=== PATIENT | female | born 2000 | race Caucasian/White ===

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

== ENCOUNTER 2020-04-19 14:08 | Emergency (ER) | payer OTHER ==
--- OUTSIDE RECORDS SUMMARY | 2020-04-19 14:10 | XMS REPORT ---
:2000 Author Organization [facility] Address [address] [place] [address] Dr. Merino [address] [place] [id number] Care Team Providers Name Role Phone Unavailable Unavailable Unavailable Problems This patient has no known problems. Allergies, Adverse Reactions, Alerts This patient has no known allergies or adverse reactions. Medications This patient has no known medications. Procedures This patient has no known procedures. Results This patient has no known results.
[2020-04-19] MEDS ORDERED: FAMOTIDINE 20 MG/2 ML VIAL IV ONE (15:47)
[2020-04-19] MEDS ORDERED: MORPHINE 4 MG/ML SYR ONE (15:47)
--- NOTE | 2020-04-19 16:11 | RAD REPORT ---
EXAM DESCRIPTION: RAD - Chest Pa And Lat (2 Views) - 04/19/2020 4:07 pm CLINICAL HISTORY: sob Chest pain. COMPARISON: Abdomen Acute Series dated 11/21/2018; CHEST PA AND LAT 2 VIEW dated 08/22/2015; CHEST SI NGLE VIEW dated 10/02/2014; CHEST SINGLE VIEW dated 07/06/2014 FINDINGS: The lungs are clear. The heart is normal in size. No displaced fractures. IMPRESSION: No acute or concerning finding suspected.
[2020-04-19 16:59] LABS: Absolute Lymphocytes (CBC) 1.1 K/uL (0.7-4.9); Basophils % 0.6 % (0-1.3); Hematocrit 40.1 % (36.0-45.0); Lymphocytes % 16.2 % (15.3-44.8); MPV 8.4 fL (7.6-11.3)
[2020-04-19 17:04] LABS: Barbiturates NEGATIVE (NEGATIVE); Benzodiazepines NEGATIVE (NEGATIVE); Cocaine NEGATIVE (NEGATIVE); METHAMPHETAM NEGATIVE (NEGATIVE); Methadone NEGATIVE (NEGATIVE); Opiates NEGATIVE (NEGATIVE); Phencyclidine NEGATIVE (NEGATIVE); THC Cannibis NEGATIVE (NEGATIVE)
[2020-04-19 17:13] LABS: Bilirubin Direct 0.1 mg/dL (0-0.2); Bilirubin Total 0.5 mg/dL (0.2-1.0); Potassium 3.6 mmol/L (3.5-5.1); Protein, Total 8.1 g/dL (6.4-8.2)
[2020-04-19 18:18] LABS: Urine Blood 1+ (NEG); Urine Glucose NEGATIVE (NEG); Urine Protein NEGATIVE (NEG); Urine Specific Gravity 1.015 (1.005-1.030)
--- NOTE | 2020-04-19 18:50 | RAD REPORT ---
EXAM DESCRIPTION: CTAbdomen Pelvis W Contrast - 04/19/2020 6:38 pm CLINICAL HISTORY: Abdominal pain. ABD PAIN COMPARISON: Abdomen Pelvis W Contrast dated 11/26/2017 TECHNIQUE: Biphasic CT imaging of the abdomen and pelvis was performed with 100 ml non-ionic IV cont rast. All CT scans are performed using dose optimization technique as appropriate and may include automated exposure control or mA/KV adjustment according to patient size. FINDINGS: The lung bases are clear. The liver, spleen, pancreas, adrenal glands and kidneys are within normal limits. No bowel obstruction, free air, free fluid or abscess. The appendix is normal. No evidence of signi ficant lymphadenopathy. No suspicious bony findings. IMPRESSION: No acute intra-abdominal or pelvic finding.
--- NOTE | 2020-04-19 19:16 | EDPHYS ---
Physician Documentation [facility] Name: Gayathri Garcia Age: 19 yrs Sex: Female : 2000 Arrival Date: 04/19/2020 Time: 14:12 Bed 20 Private MD: ED Physician Eric Calvin HPI: 04/19 15:41 This 19 yrs old Female presents to ER via Ambulatory with complaints of mh7 abdominal pain, difficulty breathing. 15:45 The patient presents with abdominal pain in the upper abdomen. Onset: The mh7 symptoms/episode began/occurred today, at 12:00. The symptoms do not radiate. Associated signs and symptoms: Pertinent positives: shortness of breath, Pertinent negatives: nausea and vomiting, blood in stools, chest pain, constipation, diarrhea, dysuria, fever, headache, hematuria, nausea, palpitations, vaginal discharge, vomiting, vomiting blood. The symptoms are described as intermittent, sharp, waxing/waning. Modifying factors: The symptoms are alleviated by nothing, the symptoms are aggravated by breathing deeply, movement, touching the area. Severity of pain: At its worst the pain was moderate today, in the emergency department the pain is unchanged. Historical: - Allergies: 14:20 No Known Allergies; ll1 - PMHx: 14:20 Anxiety; Depression; hypertension during ; ll1 - PSHx: 14:20 None; ll1 - Immunization history:: Adult Immunizations up to date. - Social history:: Smoking status: Reported history of juuling and/or vaping. Patient uses alcohol, only on a social basis. Patient/guardian denies using street drugs. ROS: 15:45 Constitutional: Negative for fever, chills, and weight loss, Eyes: Negative for injury, mh7 pain, redness, and discharge, ENT: Negative for injury, pain, and discharge, Neck: Negative for injury, pain, and swelling, Cardiovascular: Negative for chest pain, palpitations, and edema, Back: Negative for injury and pain, : Negative for injury, bleeding, discharge, and swelling, MS/Extremity: Negative for injury and deformity, Skin: Negative for injury, rash, and discoloration, Neuro: Negative for headache, weakness, numbness, tingling, and seizure, Psych: Negative for depression, anxiety, suicide ideation, homicidal ideation, and hallucinations, Allergy/Immunology: Negative for hives, rash, and allergies, Endocrine: Negative for neck swelling, polydipsia, polyuria, polyphagia, and marked weight changes, Hematologic/Lymphatic: Negative for swollen nodes, abnormal bleeding, and unusual bruising. Exam: 15:45 Constitutional: This is a well developed, well nourished patient who is awake, alert, mh7 and in no acute distress. Head/Face: Normocephalic, atraumatic. Eyes: Pupils equal round and reactive to light, extra-ocular motions intact. Lids and lashes normal. Conjunctiva and sclera are non-icteric and not injected. Cornea within normal limits. Periorbital areas with no swelling, redness, or edema. Neck: Trachea midline, no thyromegaly or masses palpated, and no cervical lymphadenopathy. Supple, full range of motion without nuchal rigidity, or vertebral point tenderness. No Meningismus. Chest/axilla: Normal chest wall appearance and motion. Nontender with no deformity. No lesions are appreciated. Cardiovascular: Regular rate and rhythm with a normal S1 and S2. No gallops, murmurs, or rubs. Normal PMI, no JVD. No pulse deficits. 15:45 Back: No spinal tenderness. No costovertebral tenderness. Full range of motion. Skin: Warm, dry with normal turgor. Normal color with no rashes, no lesions, and no evidence of cellulitis. MS/ Extremity: Pulses equal, no cyanosis. Neurovascular intact. Full, normal range of motion. Neuro: Awake and alert, GCS 15, oriented to person, place, time, and situation. Cranial nerves II-XII grossly intact. Motor strength 5/5 in all extremities. Sensory grossly intact. Cerebellar exam normal. Normal gait. Psych: Awake, alert, with orientation to person, place and time. Behavior, mood, and affect are within normal limits. 15:45 Respiratory: the patient does not display signs of respiratory distress, Respirations: normal, Breath sounds: are clear throughout, Respiratory rate: normal 15:45 Abdomen/GI: Inspection: abdomen appears normal, Bowel sounds: normal, in all quadrants, Palpation: moderate abdominal tenderness, in all quadrants, Rectal exam: the exam is deferred, because of patient request, Indicators: McBurney's point is not tender, Rondon's sign is negative, Rovsing's sign is negative, Obturator sign is negative, Psoas sign is negative, Liver: no appreciated palpable abnormalities, Hernia: not appreciated. 16:27 ECG was reviewed by the Attending Physician. mh7 Vital Signs: 14:18 BP 126 / 84; Pulse 85; Resp 19; Temp 98.33; Pulse Ox 99% ; Pain 8/10; ll1 16:50 BP 118 / 75; Pulse 72; Resp 18; Pulse Ox 98% ; ah 17:30 BP 127 / 80 Standing; Pulse 64; Resp 16; Pulse Ox 98% ; ah 18:00 BP 123 / 82; Pulse 56; Resp 16; Pulse Ox 99% ; ah 20:11 BP 115 / 78; Pulse 65; Resp 18; Temp 98.2(O); Pulse Ox 100% on R/A; lp1 MDM: 15:24 Patient medically screened. mh7 19:10 Differential diagnosis: appendicitis, cholecystitis, Cholelithiasis, Ectopic , mh7 gastritis, gastroesophageal reflux disease, non-specific abd pain, pancreatitis, Pyelonephritis, urinary tract infection. Data reviewed: vital signs, nurses notes, old medical records, lab test result(s), amylase and lipase, CBC, electrolytes, urinalysis. Data interpreted: Pulse oximetry: on room air is 99 %. Interpretation: normal. Counseling: I had a detailed discussion with the patient and/or guardian regarding: the historical points, exam findings, and any diagnostic results supporting the discharge/admit diagnosis, lab results, radiology results, the need for outpatient follow up, to return to the emergency department if symptoms worsen or persist or if there are any questions or concerns that arise at home. Response to treatment: the patient's symptoms have resolved after treatment, the patient's blood pressure is in an acceptable range, mental status has returned to baseline, the patient no longer shows bradycardia, the patient is not short of breath, the patient is not tachycardic, the patient's pain is gone, the patient's temperature has normalized. 04/20 07:41 ED course: Feels better, well appearing, NAD, VSS. No abdominal pain, SOB, chest pain, mh7 nausea, vomiting, or other complaints. She was actively playing a game on her cell phone. Discussed all test results and findings and answered all of her questions. She requested to be discharged from the ED. She will follow up with her doctor but agreed to return to the ED if return of symptoms or other concerns.. 04/19 15:29 Order name: Basic Metabolic Panel [facility] 04/19 15:29 Order name: CBC with Diff [facility] 04/19 15:29 Order name: Hepatic Function [facility] 04/19 15:29 Order name: Lipase [facility] 04/19 15:29 Order name: Test, Serum [facility] 04/19 15:29 Order name: UDS [facility] 04/19 15:29 Order name: DD [facility] 04/19 15:56 Order name: Troponin (emerg Dept Use Only) [facility] 04/19 16:49 Order name: Urine Dipstick--Ancillary (enter results); Complete Time: 18:26 [facility] 04/19 16:49 Order name: Urine --Ancillary (enter results); Complete Time: 18:26 [facility] 04/19 17:04 Order name: Urine Drug Screen; Complete Time: 17:10 [facility] 04/19 17:14 Order name: Basic Metabolic Panel; Complete Time: 17:19 [facility] 04/19 17:14 Order name: Liver (Hepatic) Function; Complete Time: 17:19 [facility] 04/19 17:14 Order name: Lipase; Complete Time: 17:19 [facility] 04/19 15:29 Order name: IV Saline Lock; Complete Time: 16:48 [facility] 04/19 15:29 Order name: Labs collected and sent; Complete Time: 16:48 [facility] 04/19 15:29 Order name: Urine Dipstick-Ancillary (obtain specimen); Complete Time: 16:45 [facility] 04/19 15:29 Order name: EKG - Nurse/Tech; Complete Time: 16:48 [facility] 04/19 15:29 Order name: Chest Pa And Lat (2 Views) XRAY [facility] 04/19 17:04 Order name: Chest Pa And Lat (2 Views); Complete Time: 18:26 [facility] 04/19 17:16 Order name: D-Dimer; Complete Time: 17:19 [facility] 04/19 17:19 Order name: CBC with Automated Diff; Complete Time: 18:26 [facility] 04/19 17:21 Order name: CT Abd/Pelvis - IV Contrast Only; Complete Time: 18:59 [facility] EC/23 16:27 Rate is 71 beats/min. Rhythm is regular. QRS [place] is Normal. PA interval is normal. QRS mh7 interval is normal. QT interval is normal. No Q waves. T waves are Inverted in leads I, III, aVL. Clinical impression: NSR w/ Non-specific ST/T Changes. Administered Medications: 16:45 Drug: morphine 4 mg Route: IVP; Site: left antecubital; 17:45 Follow up: Response: No adverse reaction; Pain is decreased; RASS: Alert and Calm (0) 16:45 Drug: Pepcid 20 mg Route: IVP; Site: left antecubital; 17:45 Follow up: Response: No adverse reaction Disposition: 04/19/20 19:13 Discharged to Home. Impression: Generalized abdominal pain, Urinary tract infection, site not specified. - Condition is Stable. - Discharge Instructions: Abdominal Pain, Adult, Urinary Tract Infection, Adult, [id number]. - Prescriptions for Bentyl 20 mg Oral Tablet - take 1 tablet by ORAL route every 6 hours As needed; 20 tablet. Keflex 500 mg Oral Capsule - take 1 capsule by ORAL route every 12 hours for 7 days; 14 capsule. Pepcid 20 mg Oral Tablet - take 1 tablet by ORAL route once daily for 10 days; 10 tablet. - Work release form, Medication Reconciliation Form, Thank You Letter, Antibiotic Education, Prescription Opioid Use form. - Follow up: Private Physician; When: 2 - 3 days; Reason: Worsening of condition, Re-evaluation by your physician. - Problem is an acute exacerbation. - Symptoms have improved. Signatures: Dispatcher [employer] EDMS Cristina Queen RN RN lp1 Bryanna Francis RN RN Kerry Langley RN RN ll1 Eric Calvin MD MD mh7 Corrections: (The following items were deleted from the chart) 20:12 19:13 04/19/2020 19:13 Discharged to Home. Impression: Generalized abdominal pain; lp1 Urinary tract infection, site not specified. Condition is Stable. Forms are Medication Reconciliation Form, Thank You Letter, Antibiotic Education, Prescription Opioid Use. Follow up: Private Physician; When: 2 - 3 days; Reason: Worsening of condition, Re-evaluation by your physician. Problem is an acute exacerbation. Symptoms have improved. mh7
--- NOTE | 2020-04-19 19:16 | ER ---
Nurse's Notes [facility] Name: Gayathri Garcia Age: 19 yrs Sex: Female : 2000 Arrival Date: 04/19/2020 Time: 14:12 Bed 20 Private MD: Diagnosis: Generalized abdominal pain;Urinary tract infection, site not specified Presentation: 04/19 14:18 Chief complaint: Patient states: SOB and mid chest pain started today while at work. No ll1 fever or cough. Coronavirus screen: Proceed with normal triage. Patient denies a cough. Patient reports shortness of breath or difficulty breathing. Patient denies measured and/or subjective temperature greater than 100.4F prior to today's visit. Patient denies travel on a cruise ship or to a country the [facility] currently lists as an affected area. Patient denies contact with known and/or suspected case of COVID-19. Ebola Screen: Patient denies travel to an Ebola-affected area in the 21 days before illness onset. Initial Sepsis Screen: Does the patient meet any 2 criteria? No. Patient's initial sepsis screen is negative. Does the patient have a suspected source of infection? No. Patient's initial sepsis screen is negative. Risk Assessment: Do you want to hurt yourself or someone else? Patient reports no desire to harm self or others. Onset of symptoms was April 19, 2020. 14:18 Method Of Arrival: Ambulatory ll1 14:18 Acuity: RYANN 3 ll1 Triage Assessment: 22:48 Respiratory: ah Historical: - Allergies: 14:20 No Known Allergies; ll1 - PMHx: 14:20 Anxiety; Depression; hypertension during ; ll1 - PSHx: 14:20 None; ll1 - Immunization history:: Adult Immunizations up to date. - Social history:: Smoking status: Reported history of juuling and/or vaping. Patient uses alcohol, only on a social basis. Patient/guardian denies using street drugs. Screenin:45 Abuse screen: Denies threats or abuse. Nutritional screening: No deficits noted. Tuberculosis screening: No symptoms or risk factors identified. Fall Risk None identified. Assessment: 15:30 General: Appears in no apparent distress. uncomfortable, Behavior is calm, cooperative. Pain: Denies pain. Neuro: Level of Consciousness is awake, alert, Oriented to person, place, time, situation, Appropriate for age. Cardiovascular: Heart tones S1 S2 present Capillary refill < 3 seconds Patient's skin is warm and dry. Pulses are palpable in right radial artery and left radial artery Rhythm is regular. Respiratory: Airway is patent Respiratory effort is even, unlabored, Respiratory pattern is regular, symmetrical, Breath sounds are clear bilaterally. GI: Bowel sounds present X 4 quads. : No signs and/or symptoms were reported regarding the genitourinary system. EENT: No signs and/or symptoms were reported regarding the EENT system. Derm: No signs and/or symptoms reported regarding the dermatologic system. Musculoskeletal: No signs and/or symptoms reported regarding the musculoskeletal system. 16:30 Reassessment: Patient and/or family updated on plan of care and expected duration. Pain ah level reassessed. Pt lying in bed with no needs voiced at this time. 17:30 Reassessment: awaiting on results. No needs voiced at this time. Vital Signs: 14:18 BP 126 / 84; Pulse 85; Resp 19; Temp 98.33; Pulse Ox 99% ; Pain 8/10; ll1 16:50 BP 118 / 75; Pulse 72; Resp 18; Pulse Ox 98% ; ah 17:30 BP 127 / 80 Standing; Pulse 64; Resp 16; Pulse Ox 98% ; ah 18:00 BP 123 / 82; Pulse 56; Resp 16; Pulse Ox 99% ; ah 20:11 BP 115 / 78; Pulse 65; Resp 18; Temp 98.2(O); Pulse Ox 100% on R/A; lp1 ED Course: 14:12 Patient arrived in ED. fj1 14:19 Triage completed. ll1 14:20 Arm band placed on Patient notified of wait time. ll1 15:06 Eric Calvin MD is Attending Physician. mh7 15:33 Bryanna Francis, RN is Primary Nurse. 16:00 EKG done, by ED staff, reviewed by Eric Calvin MD X-ray(s) taken. Patient maintains jp3 SpO2 saturation greater than 95% on room air. 16:40 Initial lab(s) drawn, by la, sent to lab. Urine collected: clean catch specimen, clear, jp3 joyce colored. Inserted saline lock: 20 gauge in left antecubital area, using aseptic technique. Blood collected. 18:38 CT Abd/Pelvis - IV Contrast Only In Process Unspecified. EDMS 19:00 Patient has correct armband on for positive identification. Bed in low position. Call light in reach. Side rails up X 1. 20:12 No provider procedures requiring assistance completed. IV discontinued. lp1 Administered Medications: 16:45 Drug: morphine 4 mg Route: IVP; Site: left antecubital; 17:45 Follow up: Response: No adverse reaction; Pain is decreased; RASS: Alert and Calm (0) 16:45 Drug: Pepcid 20 mg Route: IVP; Site: left antecubital; 17:45 Follow up: Response: No adverse reaction Outcome: 19:13 Discharge ordered by . Perry 20:12 Discharged to home ambulatory. lp1 20:12 Condition: good 20:12 Discharge instructions given to patient, Instructed on discharge instructions, follow up and referral plans. medication usage, Demonstrated understanding of instructions, follow-up care, medications, Prescriptions given X 3. 20:12 Patient left the ED. lp1 Signatures: Dispatcher [employer] EDMS Cristina Queen, RN RN lp1 Jas Rob jp3 Evan Patten fj1 Bryanna Francis, RN RN Kerry Farris RN RN ll1 Eric Calvin MD MD [facility]
[2020-04-19 20:45] VITALS: BP 115/78; TEMP 98.2; O2SAT 100
--- NOTE | 2020-04-21 08:57 | EKG ---
Test Date: 2020-04-19 Test Time: 15:54:23 Loop Tacker: SILVERIO MEASUREMENT RESULTS: Intervals: Rate: 71 OK: 168 QRSD: 90 QT: 370 QTc: 402 [place]: P: OK: 168 QRS: 117 T: 182 INTERPRETIVE STATEMENTS: Normal sinus rhythm with sinus arrhythmia Lateral infarct, age undetermined Inferior infarct, age undetermined Abnormal ECG Compared to ECG 12/10/2019 06:07:28 Myocardial infarct finding now present Electronically Signed On 04-21-20 08:54:20 CDT by Aden Us
== END 2020-04-19 20:12 | disposition home or self-care (01) ==
LOC: ER 14:08
DX: N39.0 Urinary tract infection, site not specified (principal)
CPT/HCPCS: 93005; 85025; 80048; 36415; 81025; 85379; 80076; 80307 ×8; 81003; 83690; 74177; 71046; 96375; 96374; 99284; Q9967

== ENCOUNTER 2020-07-09 20:48 | Emergency (ER) | payer OTHER ==
--- OUTSIDE RECORDS SUMMARY | 2020-07-09 20:50 | XMS REPORT | Continuity of Care Document ---
:2000 Author Organization [facility] t Address [address] [place] [address] [address] [place] [address] Care Team Providers Name Role Phone Unavailable Unavailable Unavailable Problems This patient has no known problems. Allergies, Adverse Reactions, Alerts This patient has no known allergies or adverse reactions. Medications This patient has no known medications. Procedures This patient has no known procedures. Results This patient has no known results.
[2020-07-09] MEDS ORDERED: KETOROLAC 30 MG/ML INJ ONE (22:40)
--- NOTE | 2020-07-09 23:05 | EDPHYS ---
Physician Documentation [facility] Name: Gayathri Garcia Age: 19 yrs Sex: Female : 2000 Arrival Date: 07/09/2020 Time: 20:53 Bed 30 Private MD: ED Physician Eric Peres HPI: 07/10 05:15 This 19 yrs old Female presents to ER via Ambulatory with complaints of Knee tw4 Pain, Fall Injury. 05:15 Details of fall: The patient fell from seated position, from boat. Onset: The tw4 symptoms/episode began/occurred yesterday. Associated injuries: The patient sustained right knee. Severity of symptoms: At their worst the symptoms were moderate, in the emergency department the symptoms are unchanged. The patient has not experienced similar symptoms in the past. HEALTHCARE RECRUITER: 07/09 21:56 LMP 07/09/2020 bb Historical: - Home Meds: 21:56 None [Active]; bb - PMHx: 21:56 Anxiety; Depression; hypertension during ; bb - PSHx: 21:56 None; bb - Immunization history:: Adult Immunizations up to date. - Social history:: Smoking status: Patient denies any tobacco usage or history of. ROS: 07/10 05:15 Constitutional: Negative for fever, chills, and weight loss, Eyes: Negative for injury, tw4 pain, redness, and discharge, Cardiovascular: Negative for chest pain, palpitations, and edema, Respiratory: Negative for shortness of breath, cough, wheezing, and pleuritic chest pain, Abdomen/GI: Negative for abdominal pain, nausea, vomiting, diarrhea, and constipation, Back: Negative for injury and pain, Skin: Negative for injury, rash, and discoloration, Neuro: Negative for headache, weakness, numbness, tingling, and seizure. MS/extremity: Positive for injury or acute deformity, pain, swelling, tenderness, Negative for abrasion, bite, decreased range of motion. Exam: 05:15 Constitutional: This is a well developed, well nourished patient who is awake, alert, tw4 and in no acute distress. Chest/axilla: Normal chest wall appearance and motion. Nontender with no deformity. No lesions are appreciated. Cardiovascular: Regular rate and rhythm with a normal S1 and S2. No gallops, murmurs, or rubs. Normal PMI, no JVD. No pulse deficits. Respiratory: Lungs have equal breath sounds bilaterally, clear to auscultation and percussion. No rales, rhonchi or wheezes noted. No increased work of breathing, no retractions or nasal flaring. 05:15 Musculoskeletal/extremity: Extremities: noted in the right leg: decreased ROM, pain, swelling, tenderness. Vital Signs: 07/09 21:53 BP 113 / 73; Pulse 85; Resp 14 S; Temp 98.2(O); Pulse Ox 99% on R/A; Weight 81.65 kg bb (R); Height 5 ft. 10 in. (177.80 cm) (R); Pain 9/10; 23:36 BP 103 / 52; Pulse 68; Resp 14 S; Pulse Ox 98% on R/A; Pain 4/10; bb 21:53 Body Mass Index 25.83 (81.65 kg, 177.80 cm) bb MDM: 21:39 Patient medically screened. tw4 07/10 05:15 Differential diagnosis: abrasion, closed head injury, fracture, multiple trauma. Data tw4 reviewed: vital signs, nurses notes. Data reviewed: radiologic studies, plain films. Data interpreted: Pulse oximetry: Interpretation: normal. Counseling: I had a detailed discussion with the patient and/or guardian regarding: the historical points, exam findings, and any diagnostic results supporting the discharge/admit diagnosis, radiology results. Medication response: Toradol partially relieved the patient's pain. Response to treatment: the patient's symptoms have mildly improved after treatment, and as a result, I will discharge patient. Special discussion: I discussed with the patient/guardian in detail that at this point there is no indication for admission to the hospital. It is understood, however, that if the symptoms persist or worsen the patient needs to return immediately for re-evaluation. 07/09 21:59 Order name: XRAY Knee RIGHT 3 view bb 07/09 23:04 Order name: Knee Immobilizer; Complete Time: 23:36 tw4 Administered Medications: 07/09 22:34 Drug: TORadol 60 mg Route: IM; Site: right gluteus; bb 23:36 Follow up: Response: Pain is decreased bb Disposition: 07/09/20 23:04 Discharged to Home. Impression: Sprain of other specified parts of knee. - Condition is Stable. - Discharge Instructions: Knee Immobilizer, Knee Sprain, [id number]. - Medication Reconciliation Form, Thank You Letter, Antibiotic Education, Prescription Opioid Use form. - Follow up: Private Physician; When: Upon discharge from the Emergency Department; Reason: Recheck today's complaints, Continuance of care, Re-evaluation by your physician. - Problem is new. - Symptoms have improved. Signatures: Dispatcher [employer] Lydia Lawler RN RN Eric Hubbard MD MD tw4 Corrections: (The following items were deleted from the chart) 23:37 23:04 07/09/2020 23:04 Discharged to Home. Impression: Sprain of other specified parts bb of knee. Condition is Stable. Forms are Medication Reconciliation Form, Thank You Letter, Antibiotic Education, Prescription Opioid Use. Follow up: Private Physician; When: Upon discharge from the Emergency Department; Reason: Recheck today's complaints, Continuance of care, Re-evaluation by your physician. Problem is new. Symptoms have improved. tw4
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
[2020-07-09 23:42] VITALS: TEMP 98.2
[2020-07-09 23:43] VITALS: BP 103/52; O2SAT 98
--- NOTE | 2020-07-10 07:34 | RAD REPORT ---
EXAM DESCRIPTION: RAD - Knee Right 3 View - 07/09/2020 10:41 pm CLINICAL HISTORY: Right knee pain status post injury FINDINGS: No fracture or dislocation is seen.
== END 2020-07-09 23:37 | disposition home or self-care (01) ==
LOC: ER 20:48
DX: S83.8X1A Sprain of other specified parts of right knee, initial encounter (principal); W17.89XA Other fall from one level to another, initial encounter; Y93.89 Activity, other specified; Y92.9 Unspecified place or not applicable
CPT/HCPCS: 96372; 99283

== ENCOUNTER 2020-11-02 11:25 | Emergency (ER) | payer OTHER, SELFPAY ==
--- OUTSIDE RECORDS SUMMARY | 2020-11-02 11:27 | XMS REPORT | Continuity of Care Document ---
:2000 Author Organization [facility] t Address [address] [place] [address] Dr. Merino [address] [place] [id number] Care Team Providers Name Role Phone Unavailable Unavailable Unavailable Problems This patient has no known problems. Allergies, Adverse Reactions, Alerts This patient has no known allergies or adverse reactions. Medications This patient has no known medications. Procedures This patient has no known procedures. Results This patient has no known results.
--- NOTE | 2020-11-02 13:15 | EDPHYS ---
Physician Documentation [facility] Name: Gayathri Garcia Age: 20 yrs Sex: Female : 2000 Arrival Date: 11/02/2020 Time: 11:29 Bed 14 Private MD: ED Physician Last Olivo HPI: 11/02 12:31 This 20 yrs old Female presents to ER via Ambulatory with complaints of Sore rn Throat. 12:31 The patient presents with sore throat. The patient describes throat pain as burning. rn Onset: The symptoms/episode began/occurred 3 day(s) ago. Severity of symptoms: At their worst the symptoms were mild, in the emergency department the symptoms are unchanged. Modifying factors: The symptoms are alleviated by nothing, the symptoms are aggravated by swallowing. Associated signs and symptoms: Pertinent negatives chest pain, cough, dysphagia, fever, flu-like symptoms, rhinorrhea, shortness of breath. The patient has not recently seen a physician. 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 - Social history:: Smoking status: Patient denies any tobacco usage or history of. - Family history:: not pertinent. - Hospitalizations: : No recent hospitalization is reported. ROS: 12:31 Constitutional: Negative for fever, chills, and weight loss, Eyes: Negative for injury, rn pain, redness, and discharge, ENT: + sore throat Neck: Negative for injury, pain, and swelling, Cardiovascular: Negative for chest pain, palpitations, and edema, Respiratory: Negative for shortness of breath, cough, wheezing, and pleuritic chest pain, Abdomen/GI: Negative for abdominal pain, nausea, vomiting, diarrhea, and constipation, : Negative for injury, bleeding, discharge, and swelling, MS/Extremity: Negative for injury and deformity, Skin: Negative for injury, rash, and discoloration, Neuro: Negative for headache, weakness, numbness, tingling, and seizure. Exam: 12:31 Constitutional: This is a well developed, well nourished patient who is awake, alert, rn and in no acute distress. Head/Face: Normocephalic, atraumatic. Eyes: No periorbital swelling ENT: + pharyngeal erythema, no stridor, MMM Neck: Trachea midline, no masses or crepitus, + bilateral cervical LAD Cardiovascular: Regular rate and rhythm. No pulse deficits. Respiratory: No increased work of breathing, no retractions or nasal flaring. Vital Signs: 12:02 BP 123 / 93; Pulse 94; Resp 16; Temp 98.2(TE); Pulse Ox 100% on R/A; Weight 111.13 kg; hb Height 5 ft. 10 in. (177.80 cm); Pain 4/10; 12:02 Body Mass Index 35.15 (111.13 kg, 177.80 cm) hb MDM: 11:55 Patient medically screened. rn 13:13 Differential diagnosis: group A strep tonsillitis, influenza, laryngitis, rn mononucleosis, pharyngitis, tonsillitis, upper respiratory infection, viral syndrome. Data reviewed: vital signs, nurses notes, lab test result(s), and as a result, I will discharge patient. Counseling: I had a detailed discussion with the patient and/or guardian regarding: the historical points, exam findings, and any diagnostic results supporting the discharge/admit diagnosis, lab results, the need for outpatient follow up, to return to the emergency department if symptoms worsen or persist or if there are any questions or concerns that arise at home. Special discussion: I discussed with the patient/guardian in detail that at this point there is no indication for admission to the hospital. It is understood, however, that if the symptoms persist or worsen the patient needs to return immediately for re-evaluation. 11/02 12:02 Order name: Strep; Complete Time: 13:13 rn 12 12:02 Order name: Flu; Complete Time: 13:13 rn 11/02 12:02 Order name: COVID-19 rn 11/02 12:39 Order name: Throat Culture EDMS Administered Medications: No medications were administered Disposition: 11/02/20 13:14 Discharged to Home. Impression: Acute pharyngitis. - Condition is Stable. - Discharge Instructions: Pharyngitis. - Prescriptions for Zithromax Z- Reyes 250 mg Oral Tablet - take 1 tablet by ORAL route as directed for 5 days Day 1 - take two (2) tablets one time. Day 2, 3, 4 , 5 take one (1) tablet once daily.; 6 tablet. - Medication Reconciliation Form, Thank You Letter, Antibiotic Education, Prescription Opioid Use form. - Follow up: Private Physician; When: As needed; Reason: Recheck today's complaints, Re-evaluation by your physician. - Problem is new. - Symptoms are unchanged. Signatures: Dispatcher [employer] EDLast Linn MD MD rn Baxter, Heather, RN RN hb Cruz, Emily, RN RN ec1 Corrections: (The following items were deleted from the chart) 13:20 13:14 11/02/2020 13:14 Discharged to Home. Impression: Acute pharyngitis. Condition is ec1 Stable. Forms are Medication Reconciliation Form, Thank You Letter, Antibiotic Education, Prescription Opioid Use. Follow up: Private Physician; When: As needed; Reason: Recheck today's complaints, Re-evaluation by your physician. Problem is new. Symptoms are unchanged. rn
--- NOTE | 2020-11-02 13:15 | ER ---
Nurse's Notes [facility] Name: Gayathri Garcia Age: 20 yrs Sex: Female : 2000 Arrival Date: 11/02/2020 Time: 11:29 Bed 14 Private MD: Diagnosis: Acute pharyngitis Presentation: 11/02 12:02 Chief complaint: Sore throat x 3 days. Coronavirus screen: Client presents with at hb least one sign or symptom that may indicate coronavirus-19. Standard/surgical mask placed on the client. Provider contacted for isolation considerations. Ebola Screen: No symptoms or risks identified at this time. Initial Sepsis Screen: Does the patient meet any 2 criteria? HR > 90 bpm. No. Patient's initial sepsis screen is negative. Does the patient have a suspected source of infection? No. Patient's initial sepsis screen is negative. Risk Assessment: Do you want to hurt yourself or someone else? Patient reports no desire to harm self or others. Onset of symptoms was October 30, 2020. 12:02 Method Of Arrival: Ambulatory hb 12:02 Acuity: RYANN 4 hb Triage Assessment: 12:04 General: Appears in no apparent distress. uncomfortable, Behavior is calm, cooperative. hb Pain: Pain currently is 4 out of 10 on a pain scale. EENT: Reports sore throat. Neuro: Level of Consciousness is awake, alert, obeys commands, Oriented to person, place, time, situation. Cardiovascular: Patient's skin is warm and dry. Respiratory: Respiratory effort is even, unlabored, Respiratory pattern is regular, symmetrical. GI: No signs and/or symptoms were reported involving the gastrointestinal system. : No signs and/or symptoms were reported regarding the genitourinary system. Derm: Skin is pink, warm \T\ dry. Musculoskeletal: No signs and/or symptoms reported regarding the musculoskeletal system. 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 - Social history:: Smoking status: Patient denies any tobacco usage or history of. - Family history:: not pertinent. - Hospitalizations: : No recent hospitalization is reported. Screenin:05 Abuse screen: Denies threats or abuse. Denies injuries from another. Nutritional hb screening: No deficits noted. Tuberculosis screening: No symptoms or risk factors identified. Fall Risk None identified. Assessment: 12:05 General: see triage. hb 13:18 Respiratory: Airway. ec1 13:19 Respiratory: Airway is patent Respiratory effort is even, unlabored. ec1 13:19 EENT: Throat. ec1 Vital Signs: 12:02 BP 123 / 93; Pulse 94; Resp 16; Temp 98.2(TE); Pulse Ox 100% on R/A; Weight 111.13 kg; hb Height 5 ft. 10 in. (177.80 cm); Pain 4/10; 12:02 Body Mass Index 35.15 (111.13 kg, 177.80 cm) hb ED Course: 11:29 Patient arrived in ED. ds1 11:55 Last Olivo MD is Attending Physician. rn 12:03 Triage completed. hb 12:04 Arm band placed on. hb 12:05 Patient has correct armband on for positive identification. Bed in low position. Call light in reach. 12:11 Anna Colindres, RN is Primary Nurse. ec1 13:19 No provider procedures requiring assistance completed. Patient did not have IV access ec1 during this emergency room visit. Administered Medications: No medications were administered Outcome: 13:14 Discharge ordered by MD. rn 13:19 Discharged to home ambulatory, with family. ec1 13:19 Condition: good 13:19 Discharge instructions given to patient, Instructed on discharge instructions, follow up and referral plans. Demonstrated understanding of instructions, follow-up care, medications, Prescriptions given X 1. 13:20 Patient left the ED. ec1 Addendum: 11/05/2020 16:45 Addendum: COVID-19 Result: Positive result giiven to ED physician to notify pt. h b Physician: Rosa Perry MD. Signatures: Nicole Bal ds1 Last Olivo MD MD rn Baxter, Heather, RN RN Anna Colindres RN RN ec1
[2020-11-06 09:52] VITALS: BP 123/93; TEMP 98.2; O2SAT 100
== END 2020-11-02 13:20 | disposition home or self-care (01) ==
LOC: ER 11:25
DX: U07.1 COVID-19 (principal); J02.9 Acute pharyngitis, unspecified
CPT/HCPCS: 87070; 87081; 87804; 99282; U0002

== ENCOUNTER 2022-01-25 19:59 | Emergency (ER) | payer BC, SELFPAY ==
--- OUTSIDE RECORDS SUMMARY | 2022-01-25 20:01 | XMS REPORT | Continuity of Care Document ---
:2000 Author Organization [facility] t Address [address] [place] [address] Dr. Merino [address] [place] [id number] Care Team Providers Name Role Phone Unavailable Unavailable Unavailable Problems This patient has no known problems. Allergies, Adverse Reactions, Alerts This patient has no known allergies or adverse reactions. Medications This patient has no known medications. Procedures This patient has no known procedures. Results This patient has no known results.
[2022-01-25] MEDS ORDERED: NA CHLORIDE 0.9% 1,000 ML ONE (21:02)
--- NOTE | 2022-01-25 21:22 | RAD REPORT ---
EXAM DESCRIPTION: CT - Head Brain Wo Cont - 01/25/2022 8:59 pm CLINICAL HISTORY: Headache COMPARISON: 2019 TECHNIQUE: Computed axial tomography of the head was obtained. IV contrast was not requested. All CT scans are performed using dose optimization technique as appropriate and may include automated exposure control or mA/KV adjustment according to patient size. FINDINGS: An intracranial bleed is not seen . The ventricles are normal in caliber. No extra-axial fluid collection is noted. Fluid within the sinuses/ mastoids is not seen. 13 millimeter round structure within the floor of the sphenoid sinus. IMPRESSION: No acute intracranial abnormality is seen. If patient's symptoms persist MRI of the bra in would be recommended. 13 millimeter round structure within the sphenoid sinus may represent a mucus retention cyst. Followu p CT in 1 year would be helpful for re-evaluation
[2022-01-25 21:33] LABS: SARS-COV-2 RT PCR NEGATIVE (NEGATIVE)
[2022-01-25] MEDS ORDERED: METOCLOPRAMIDE 10 MG/2mL INJ ONE (21:44)
[2022-01-25] MEDS ORDERED: NA CHLORIDE 0.9% 50 ML ONE (21:45)
[2022-01-25] MEDS ORDERED: KETOROLAC 30 MG/ML INJ ONE (21:45)
[2022-01-25 21:49] LABS: Absolute Lymphocytes (CBC) 1.7 K/uL (0.7-4.9); Hematocrit 41.5 % (36.0-45.0); Lymphocytes % 31.5 % (15.3-44.8); MPV 7.6 fL (7.6-11.3); RBC Red Blood Cell Count 4.46 M/uL (3.86-4.86)
[2022-01-25 21:57] LABS: Urine Blood 1+ (Negative); Urine Glucose Negative (Negative); Urine Protein Negative (Negative)
[2022-01-25 22:01] LABS: BUN Blood Urea Nitrogen 10 mg/dL (7-18); Bicarbonate 28 mmol/L (21-32); Glucose Level 97 mg/dL (74-106); Potassium 3.8 mmol/L (3.5-5.1); Sodium Level 141 mmol/L (136-145)
[2022-01-25 22:23] LABS: Urine Bacteria 20-50 /HPF (<20); Urine RBC <5 /HPF (NONE SEEN)
[2022-01-25 22:24] LABS: Urine Amorphous Sediment 1+ /HPF (NONE SEEN)
--- NOTE | 2022-01-25 22:43 | EDPHYS ---
Physician Documentation [facility] Name: Gayathri Garcia Age: 21 yrs Sex: Female : 2000 Arrival Date: 01/25/2022 Time: 20:02 Bed 20 Private MD: ED Physician Last Olivo HPI: 01/25 20:49 This 21 yrs old Female presents to ER via Ambulatory with complaints of Headache. rn 20:49 The patient complains of pain to the top of head and forehead. The patient describes rn the headache as aching. Onset: The symptoms/episode began/occurred 5 day(s) ago. Associated signs and symptoms: Pertinent positives: nausea, vomiting, Pertinent negatives: altered mental status, fever, neck stiffness, rash, vision changes, vision loss. Severity of symptoms: At its worst the pain was moderate, in the emergency department the pain is unchanged. Headache History: Denies prior headaches. The symptoms are alleviated by nothing. the symptoms are aggravated by lights, movement, noise. The patient has not experienced similar symptoms in the past. The patient has not recently seen a physician. Pt reports headache that began 5 days ago, no fever, reports threw up a few times at beginning but now only nausea. No trauma. Denies focal neuro complaint. No abd pain. Denies . Reports also having muscle aches, fatigue. No known sick contacts. . Historical: - Allergies: 20:25 No Known Allergies; tk1 - Home Meds: 20:25 None [Active]; tk1 - PMHx: 20:25 Anxiety; Depression; hypertension during ; tk1 - Immunization history:: Adult Immunizations up to date, Flu vaccine is up to date. - Social history:: Smoking status: Patient denies any tobacco usage or history of. Patient uses alcohol, occasionally. - Family history:: not pertinent. - Hospitalizations: : No recent hospitalization is reported. ROS: 20:49 Constitutional: Negative for fever, weight loss Eyes: Negative for injury, pain, rn redness, and discharge, ENT: Negative for injury, pain, and discharge, Neck: Negative for injury, pain, and swelling, Cardiovascular: Negative for chest pain, palpitations, and edema, Respiratory: Negative for shortness of breath, cough, wheezing, and pleuritic chest pain, Abdomen/GI: + nausea, negative for abd pain : Negative for injury, bleeding, discharge, and swelling, MS/Extremity: Negative for injury and deformity, Skin: Negative for injury, rash, and discoloration, Neuro: Negative for numbness, tingling, and seizure. 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 Head/Face: Normocephalic, atraumatic. Eyes: Pupils equal round and reactive to light, extra-ocular motions intact. Lids and lashes normal. Conjunctiva and sclera are non-icteric and not injected. Cornea within normal limits. Periorbital areas with no swelling, redness, or edema. ENT: MMM, no stridor, no exudate, no lesions Neck: Trachea midline, no masses palpated, and no cervical lymphadenopathy. Supple, full range of motion without nuchal rigidity, or vertebral point tenderness. No Meningismus. Cardiovascular: Regular rate and rhythm. No pulse deficits. Respiratory: No increased work of breathing, no retractions or nasal flaring. Abdomen/GI: Soft, non-tender Skin: Warm, dry MS/ Extremity: Pulses equal, no cyanosis. Neuro: Awake and alert, GCS 15, oriented to person, place, time, and situation. Cranial nerves II-XII grossly intact. Motor strength 5/5 in all extremities. Sensory grossly intact. Cerebellar exam normal. Normal gait. Vital Signs: 20:21 BP 147 / 108 RA Sitting (auto/reg); Pulse 91 MON; Resp 18 S; Pulse Ox 100% on R/A; tk1 20:29 Temp 97.9(O); tk1 22:30 BP 136 / 92; Pulse 86; Resp 18; Pulse Ox 100% ; vc1 Jasvir Coma Score: 22:42 Eye Response: spontaneous(4). Verbal Response: oriented(5). Motor Response: obeys rn commands(6). Total: 15. MDM: 20:18 Patient medically screened. rn 20:53 ED course: Pt states no history of migraines or headache but history review in [facility] rn says otherwise, has been seen here multiple times for migraines. . 21:23 ED course: CT head without acute findings.. rn 22:42 Differential diagnosis: hypertensive headache, intracerebral hemorrhage, migraine, rn neoplasm, tension headache, vasomotor headache. Data reviewed: vital signs, nurses notes, lab test result(s), radiologic studies, CT scan, and as a result, I will discharge patient. Counseling: I had a detailed discussion with the patient and/or guardian regarding: the historical points, exam findings, and any diagnostic results supporting the discharge/admit diagnosis, lab results, radiology results, the need for outpatient follow up, to return to the emergency department if symptoms worsen or persist or if there are any questions or concerns that arise at home. Response to treatment: the patient's symptoms have mildly improved after treatment, Can open eyes now and states feels better. , and as a result, I will discharge patient. Special discussion: I discussed with the patient/guardian in detail that at this point there is no indication for admission to the hospital. It is understood, however, that if the symptoms persist or worsen the patient needs to return immediately for re-evaluation. Based on the history and exam findings, there is no indication for further emergent testing or inpatient evaluation. I discussed with the patient/guardian the need to see the neurologist for further evaluation of the symptoms. 01/25 20:26 Order name: Urine Microscopic Only; Complete Time: 22:38 01/25 20:26 Order name: COVID-19/FLU A+B (Document "Date of Onset" if Symptomatic); Complete Time: rn 21:35 01/25 20:26 Order name: Strep rn 01/25 20:26 Order name: [place] Screen Profile; Complete Time: 22:17 01/25 20:28 Order name: CBC with Diff; Complete Time: 22:17 01/25 20:28 Order name: Basic Metabolic Panel; Complete Time: 22:17 01/25 20:26 Order name: CT Head Brain wo Cont; Complete Time: 21:22 01/25 21:57 Order name: Urine Dipstick-Ancillary; Complete Time: 22:17 [facility] 01/25 22:24 Order name: Urine Culture [facility] 01/25 23:04 Order name: Throat Culture [facility] 01/25 20:26 Order name: Urine Dipstick-Ancillary (obtain specimen); Complete Time: 21:51 01/25 20:26 Order name: Urine Test (obtain specimen); Complete Time: 21:51 01/25 20:28 Order name: IV Start; Complete Time: 21:38 rn Administered Medications: 21:47 Drug: Ketorolac 15 mg Route: IVP; Site: right antecubital; vc1 22:30 Follow up: Response: No adverse reaction; Pain is decreased vc1 21:48 Drug: NS 0.9% 1000 ml Route: IV; Rate: 1000 ml; Site: right antecubital; vc1 22:48 Follow up: IV Status: Completed infusion; IV Intake: 1000ml vc1 21:48 Drug: Reglan (metoCLOPramide) 10 mg Route: IVP; Site: right antecubital; vc1 22:30 Follow up: Response: No adverse reaction vc1 22:58 Drug: Decadron - Dexamethasone 10 mg Route: IVP; Site: right antecubital; vc1 23:02 Follow up: Response: No adverse reaction vc1 22:58 Drug: Zofran (Ondansetron) 4 mg Route: IVP; Site: right antecubital; vc1 23:02 Follow up: Response: No adverse reaction vc1 Disposition Summary: 01/25/22 22:43 Discharge Ordered Location: Home rn Problem: new rn Symptoms: have improved rn Condition: Stable rn Diagnosis - Headache rn Followup: rn - With: Private Physician - When: As needed - Reason: Recheck today's complaints, Re-evaluation by your physician Discharge Instructions: - Discharge Summary Sheet rn - General Headache Without Cause rn - Migraine Headache rn Forms: - Medication Reconciliation Form rn - Thank You Letter rn - Antibiotic operations intern - Prescription Opioid Use rn Signatures: Dispatcher [employer] Last Ponce MD MD rn Kirby, Tammie tk1 Pam Cartwright RN RN vc1
--- NOTE | 2022-01-25 22:43 | ER ---
Nurse's Notes [facility] Name: Gayathri Garcia Age: 21 yrs Sex: Female : 2000 Arrival Date: 01/25/2022 Time: 20:02 Bed 20 Private MD: Diagnosis: Headache Presentation: 01/25 20:21 Chief complaint: Patient states: Patient with RASHID for one week. Ears feel "like when you tk1 drive a car with the windows down. Vomited a couple of days ago. Decreased appetite. Photophobia. Coronavirus screen: Vaccine status: Patient reports being unvaccinated. Client denies travel out of the [place] in the last 14 days. At this time, the client does not indicate any symptoms associated with coronavirus-19. Ebola Screen: Patient negative for fever greater than or equal to 101.5 degrees Fahrenheit, and additional compatible Ebola Virus Disease symptoms Patient denies exposure to infectious person. Patient denies travel to an Ebola-affected area in the 21 days before illness onset. Initial Sepsis Screen: Does the patient meet any 2 criteria? No. Patient's initial sepsis screen is negative. Does the patient have a suspected source of infection? No. Patient's initial sepsis screen is negative. Risk Assessment: Do you want to hurt yourself or someone else? Patient reports no desire to harm self or others. Onset of symptoms was January 18, 2022. 20:21 Method Of Arrival: Ambulatory tk1 20:21 Acuity: RYANN 3 tk1 20:21 Coronavirus screen: Client reports previous positive COVID test result. Date of tk1 collection: October 28, 2020. Triage Assessment: 20:25 Headache History: Denies prior headaches. General: Appears uncomfortable, obese, well tk1 developed, well nourished, Behavior is calm, cooperative, appropriate for age. Pain: Complains of pain in top of head, forehead, right ear, right catholic, right side of the back of head, right occipital area and right base of the skull Pain does not radiate. Pain currently is 8 out of 10 on a pain scale. Quality of pain is described as aching, Pain began one week Also complains of nausea. Neuro: Level of Consciousness is awake, alert, obeys commands, Oriented to person, place, time, situation, Appropriate for age Credit Card Associate are equal bilaterally Moves all extremities. Gait is steady, Speech is normal, Facial symmetry appears normal, Pupils are PERRLA, Intact. Respiratory: Airway is patent Trachea midline Respiratory effort is even, unlabored. Historical: - Allergies: 20:25 No Known Allergies; tk1 - Home Meds: 20:25 None [Active]; tk1 - PMHx: 20:25 Anxiety; Depression; hypertension during ; tk1 - Immunization history:: Adult Immunizations up to date, Flu vaccine is up to date. - Social history:: Smoking status: Patient denies any tobacco usage or history of. Patient uses alcohol, occasionally. - Family history:: not pertinent. - Hospitalizations: : No recent hospitalization is reported. Screenin:30 Abuse screen: Denies threats or abuse. Nutritional screening: No deficits noted. vc1 Tuberculosis screening: No symptoms or risk factors identified. Fall Risk None identified. Vital Signs: 20:21 BP 147 / 108 RA Sitting (auto/reg); Pulse 91 MON; Resp 18 S; Pulse Ox 100% on R/A; tk1 20:29 Temp 97.9(O); tk1 22:30 BP 136 / 92; Pulse 86; Resp 18; Pulse Ox 100% ; vc1 [place] Coma Score: 22:42 Eye Response: spontaneous(4). Verbal Response: oriented(5). Motor Response: obeys rn commands(6). Total: 15. ED Course: 01/24 21:30 Arm band placed on right wrist. vc1 01/25 20:02 Patient arrived in ED. ja2 20:18 Last Olivo MD is Attending Physician. rn 20:24 Triage completed. tk1 20:29 COVID-19/FLU A+B (Document "Date of Onset" if Symptomatic) Sent. tk1 20:29 Strep Sent. tk1 20:53 Pam Cartwright, AMA is Primary Nurse. vc1 20:59 CT Head Brain wo Cont In Process Unspecified. EDMS 21:02 COVID-19/FLU A+B (Document "Date of Onset" if Symptomatic) Sent. vc1 21:02 Strep Sent. vc1 21:30 Inserted saline lock: 20 gauge in right antecubital area, using aseptic technique. vc1 Blood collected. 21:50 Basic Metabolic Panel Sent. vc1 21:50 CBC with Diff Sent. vc1 23:02 No provider procedures requiring assistance completed. IV discontinued, intact, vc1 bleeding controlled, No redness/swelling at site. Pressure dressing applied. Administered Medications: 21:47 Drug: Ketorolac 15 mg Route: IVP; Site: right antecubital; vc1 22:30 Follow up: Response: No adverse reaction; Pain is decreased vc1 21:48 Drug: NS 0.9% 1000 ml Route: IV; Rate: 1000 ml; Site: right antecubital; vc1 22:48 Follow up: IV Status: Completed infusion; IV Intake: 1000ml vc1 21:48 Drug: Reglan (metoCLOPramide) 10 mg Route: IVP; Site: right antecubital; vc1 22:30 Follow up: Response: No adverse reaction vc1 22:58 Drug: Decadron - Dexamethasone 10 mg Route: IVP; Site: right antecubital; vc1 23:02 Follow up: Response: No adverse reaction vc1 22:58 Drug: Zofran (Ondansetron) 4 mg Route: IVP; Site: right antecubital; vc1 23:02 Follow up: Response: No adverse reaction vc1 Intake: 22:48 IV: 1000ml; Total: 1000ml. vc1 Outcome: 22:43 Discharge ordered by . rn 23:02 Discharged to home ambulatory. vc1 23:02 Condition: good 23:02 Discharge instructions given to patient, Instructed on discharge instructions, follow up and referral plans. Demonstrated understanding of instructions, follow-up care. 23:04 Patient left the ED. vc1 Signatures: Dispatcher [employer] Last Ponce MD MD rn Alexander, Jessica ja2 Kirby, Tammie tk1 Calcote, Vanessa, RN RN vc1
[2022-01-25] MEDS ORDERED: dexAMETHasone 10 MG/ML VIAL ONE (22:54)
[2022-01-25] MEDS ORDERED: ONDANSETRON 4 MG/2 ML VIAL ONE (22:54)
[2022-01-26 00:23] VITALS: O2SAT 100
[2022-01-26 00:25] VITALS: TEMP 97.9
[2022-01-26 00:27] VITALS: BP 136/92
== END 2022-01-25 23:04 | disposition home or self-care (01) ==
LOC: ER 19:59
DX: R51.9 Headache, unspecified (principal); Z20.822 Contact with and (suspected) exposure to COVID-19
CPT/HCPCS: 87070; 87088; 85025; 87086; 80048; 36415; 86308; 87081; 0240U; 70450; J2765; J1100; J7030; J2405; 81003; 81015; 96361; 96374; 96375; 99284

== ENCOUNTER 2022-03-25 16:42 | Emergency (ER) | payer BC ==
--- OUTSIDE RECORDS SUMMARY | 2022-03-25 16:44 | XMS REPORT | Continuity of Care Document ---
:2000 Author Organization [facility] t Address [address] [place] [address] Dr. Nelson. [address] [place] [address] Care Team Providers Name Role Phone Unavailable Unavailable Unavailable Problems This patient has no known problems. Allergies, Adverse Reactions, Alerts This patient has no known allergies or adverse reactions. Medications This patient has no known medications. Procedures This patient has no known procedures. Encounters Start End Encounter Admission Attending Care Care Encounter Source Date/Time Date/Time Type Type Clinicians Facility Department ID 2022-02-19 Outpatient [facility] [id number] [place] 19:26:37 [id number] [facility] Results This patient has no known results.
[2022-03-25] MEDS ORDERED: ONDANSETRON 4 MG/2 ML VIAL ONE (17:23)
[2022-03-25] MEDS ORDERED: NA CHLORIDE 0.9% 1,000 ML ONE (17:24)
[2022-03-25 17:51] LABS: Absolute Lymphocytes (CBC) 1.4 K/uL (0.7-4.9); Hematocrit 44.6 % (36.0-45.0); MPV 8.2 fL (7.6-11.3); RBC Red Blood Cell Count 4.76 M/uL (3.86-4.86)
[2022-03-25 19:10] LABS: SARS-COV-2 RT PCR NEGATIVE (NEGATIVE)
[2022-03-25 19:12] LABS: Albumin 4.2 g/dL (3.4-5.0); Potassium 3.6 mmol/L (3.5-5.1); Protein, Total 7.9 g/dL (6.4-8.2)
--- NOTE | 2022-03-25 19:27 | ER ---
Nurse's Notes [facility] Name: Gayathri Garcia Age: 21 yrs Sex: Female : 2000 Arrival Date: 03/25/2022 Time: 16:47 Bed 15 Private MD: Diagnosis: Other specified noninfective gastroenteritis and colitis Presentation: 03/25 16:53 Chief complaint: Patient states: Pt reports being dizzy, near syncopal episode at home ld1 today. Pt states "my period is 4 days late and I haven't been able to keep any food/water down.". Coronavirus screen: At this time, the client does not indicate any symptoms associated with coronavirus-19. Ebola Screen: No symptoms or risks identified at this time. Initial Sepsis Screen: Does the patient meet any 2 criteria? No. Patient's initial sepsis screen is negative. Does the patient have a suspected source of infection? No. Patient's initial sepsis screen is negative. Risk Assessment: Do you want to hurt yourself or someone else? Patient reports no desire to harm self or others. Onset of symptoms was March 25, 2022. 16:53 Method Of Arrival: Ambulatory ld1 16:53 Acuity: RYANN 4 ld1 Triage Assessment: 16:54 General: Appears in no apparent distress. comfortable, Behavior is calm, cooperative, ld1 appropriate for age. Pain: Denies pain. EENT: No signs and/or symptoms were reported regarding the EENT system. Neuro: Level of Consciousness is awake, alert, obeys commands, Oriented to person, place, time, situation, Reports a syncopal episode. Cardiovascular: Capillary refill < 3 seconds Patient's skin is warm and dry. Respiratory: Airway is patent Respiratory effort is even, unlabored. 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 - Social history:: Smoking status: Patient denies any tobacco usage or history of. Patient uses alcohol, occasionally. - Family history:: not pertinent. - Hospitalizations: : No recent hospitalization is reported. Screenin:42 Abuse screen: Denies threats or abuse. Denies injuries from another. Nutritional jg9 screening: No deficits noted. Tuberculosis screening: No symptoms or risk factors identified. Fall Risk None identified. Assessment: 17:42 Reassessment: No changes from previously documented assessment. Patient and/or family jg9 updated on plan of care and expected duration. Pain level reassessed. Patient is alert, oriented x 3, equal unlabored respirations, skin warm/dry/pink. Neuro: No deficits noted. Cardiovascular: No deficits noted. Rhythm is sinus rhythm. 17:45 Reassessment: Patient c/o chest pain and sob-vitals assessed WNL, EKG jg9 [id number] notified. Neuro: No deficits noted. 18:23 Reassessment: Patient and/or family updated on plan of care and expected duration. Pain jg9 level reassessed. Patient is alert, oriented x 3, equal unlabored respirations, skin warm/dry/pink. Patient states feeling better. Neuro: No deficits noted. 19:21 General: Appears in no apparent distress. comfortable, Behavior is calm, cooperative, al4 appropriate for age. Pain: Denies pain. Neuro: Level of Consciousness is awake, alert, obeys commands, Oriented to person, place, time, situation. Cardiovascular: Capillary refill < 3 seconds Patient's skin is warm and dry. Respiratory: Airway is patent Respiratory effort is unlabored, Respiratory pattern is regular. GI: Patient currently denies diarrhea, nausea, vomiting. Musculoskeletal: Circulation, motion, and sensation intact. Vital Signs: 16:53 BP 129 / 76; Pulse 76; Resp 18; Temp 98.1(O); Pulse Ox 97% on R/A; Weight 114.31 kg; ld1 Height 5 ft. 10 in. (177.80 cm); Pain 0/10; 18:15 BP 106 / 70; Pulse 68; Resp 18; Pulse Ox 96% on R/A; jg9 19:15 BP 118 / 79; Pulse 66; Resp 19; Pulse Ox 98% on R/A; Pain 0/10; al4 19:30 BP 118 / 73; Pulse 63; Resp 21 S; Pulse Ox 97% on R/A; Pain 0/10; al4 16:53 Body Mass Index 36.16 (114.31 kg, 177.80 cm) ld1 ED Course: 16:47 Patient arrived in ED. mr 16:54 Triage completed. ld1 16:54 Arm band placed on right wrist. ld1 17:06 Cristy Gallardo NP is PHCP. sm6 17:06 Rosa Perry MD is Attending Physician. sm6 17:16 Betzy Mcdonnell, RN is Primary Nurse. jg9 17:30 Inserted saline lock: 20 gauge in right forearm, using aseptic technique. Blood jg9 collected. 18:00 Patient has correct armband on for positive identification. Bed in low position. Call jg9 light in reach. 18:24 No apparent distress. Resting quietly. Awaiting lab results. jg9 19:44 No provider procedures requiring assistance completed. IV discontinued, intact, al4 bleeding controlled, No redness/swelling at site. Pressure dressing applied. Administered Medications: 17:46 Drug: NS 0.9% 1000 ml Route: IV; Rate: 1 bolus; Site: right forearm; jg9 17:47 Drug: Zofran (Ondansetron) 4 mg Route: IVP; Site: right forearm; jg9 18:10 Follow up: Response: No adverse reaction jg9 Point of Care Testin:42 n/a-see labs jg9 Ranges: Outcome: 19:27 Discharge ordered by . [facility] 19:44 Discharged to home ambulatory, with ride from Mom al4 19:44 Condition: stable 19:44 Discharge instructions given to patient, Instructed on discharge instructions, follow up and referral plans. medication usage, Demonstrated understanding of instructions, follow-up care, medications. 19:46 Patient left the ED. al4 Signatures: Tevin Margaret Hyatt Alexus, RN RN ld1 Vineet Harris al4 Betzy Mcdonnell, AMA RN jg9 Cristy Gallardo, SUSAN CREATIVE WRITING PROFESSOR [facility] Corrections: (The following items were deleted from the chart) 17:09 16:53 Pulse 76bpm; Resp 18bpm; Pulse Ox 97% RA; Temp 98.1F Oral; 114.31 kg; Height 5 ld1 ft. 10 in.; BMI: 36.1; Pain 0/10; ld1
--- NOTE | 2022-03-25 19:28 | EDPHYS ---
Physician Documentation [facility] Name: Gayathri Garcia Age: 21 yrs Sex: Female : 2000 Arrival Date: 03/25/2022 Time: 16:47 Bed 15 Private MD: ED Physician Rosa Perry HPI: 03/25 17:10 This 21 yrs old Female presents to ER via Ambulatory with complaints of Near sm6 Syncope, Vomiting. 17:10 The patient has experienced near-syncope, felt faint, felt generally weak. Onset: The sm6 symptoms/episode began/occurred gradually, 3 day(s) ago. Context: occurred at home, occurred while the patient was walking, Just prior to the episode the patient experienced vomiting. Associated injury: The patient did not suffer any apparent associated injury. Associated signs and symptoms: Pertinent positives: nausea, vomiting, Pertinent negatives: abdominal pain, headache, palpitations, shortness of breath, Vaginal Bleeding. Current symptoms: Malaise and nausea.. The patient has experienced a previous episode, with . . The patient has not recently seen a physician. Patient is concerned over stating that her menses is 4 days late and last menstrual period was 03/20/22. . 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 - Social history:: Smoking status: Patient denies any tobacco usage or history of. Patient uses alcohol, occasionally. - Family history:: not pertinent. - Hospitalizations: : No recent hospitalization is reported. ROS: 17:10 Constitutional: Negative for fever, chills, and weight loss, Eyes: Negative for injury, sm6 pain, redness, and discharge, ENT: Negative for injury, pain, and discharge, Cardiovascular: Negative for chest pain, palpitations, and edema, Respiratory: Negative for shortness of breath, cough, wheezing, and pleuritic chest pain, Back: Negative for injury and pain, : Negative for injury, bleeding, discharge, and swelling, MS/Extremity: Negative for injury and deformity, Skin: Negative for injury, rash, and discoloration, Allergy/Immunology: Negative for hives, rash, and allergies, Hematologic/Lymphatic: Negative for swollen nodes, abnormal bleeding, and unusual bruising. 17:10 Abdomen/GI: Positive for nausea and vomiting, Negative for abdominal pain, diarrhea, constipation, abdominal cramps, abdominal distension. 17:10 Neuro: Positive for dizziness, near syncope, Negative for altered mental status, gait disturbance, headache, syncope. 17:10 Psych: Positive for anxiety, depression, Negative for Exam: 17:10 Constitutional: This is a well developed, well nourished patient who is awake, alert, sm6 and in no acute distress. Head/Face: Normocephalic, atraumatic. ENT: Oropharynx with no redness, swelling, or masses, exudates, or evidence of obstruction, uvula midline. Mucous membranes moist. Cardiovascular: Regular rate and rhythm with a normal S1 and S2. No gallops, murmurs, or rubs. Respiratory: Lungs have equal breath sounds bilaterally, clear to auscultation and percussion. No rales, rhonchi or wheezes noted. No increased work of breathing, no retractions or nasal flaring. Abdomen/GI: Soft, non-tender, with normal bowel sounds. No distension or tympany. No guarding or rebound. No evidence of tenderness throughout. Back: No spinal tenderness. No costovertebral tenderness. Full range of motion. Skin: Warm, dry with normal turgor. Normal color with no rashes, no lesions, and no evidence of cellulitis. MS/ Extremity: Full, normal range of motion. Neuro: Awake and alert, GCS 15, oriented to person, place, time, and situation. Normal gait. Psych: Awake, alert, with orientation to person, place and time. Behavior, mood, and affect are within normal limits. Vital Signs: 16:53 BP 129 / 76; Pulse 76; Resp 18; Temp 98.1(O); Pulse Ox 97% on R/A; Weight 114.31 kg; ld1 Height 5 ft. 10 in. (177.80 cm); Pain 0/10; 18:15 BP 106 / 70; Pulse 68; Resp 18; Pulse Ox 96% on R/A; jg9 19:15 BP 118 / 79; Pulse 66; Resp 19; Pulse Ox 98% on R/A; Pain 0/10; al4 19:30 BP 118 / 73; Pulse 63; Resp 21 S; Pulse Ox 97% on R/A; Pain 0/10; al4 16:53 Body Mass Index 36.16 (114.31 kg, 177.80 cm) ld1 MDM: 17:07 Patient medically screened. [facility] 17:10 Data reviewed: vital signs, nurses notes. [facility] 17:10 Differential Diagnosis: , Viral illness including COVID, influenza, or sm6 gastrointestinal virus. Dehydration or electrolyte imbalance.. 17:10 ED course: Patient is a 21-year-old female in no acute distress at this time who has [facility] complaints of near syncope due to dizziness and vomiting for 3 days. Patient is concerned of due to this is how she felt last time she was . We will do a basic diagnostic work-up to check for viral illness versus versus UTI.. 17:54 Test interpretation: by ED physician or midlevel provider: ECG, 17:48 Sinus Rhythm at 6 69, no ST abnormality. Reviewed by Dr Celaya. . 19:24 Counseling: I had a detailed discussion with the patient and/or guardian regarding: the [facility] historical points, exam findings, and any diagnostic results supporting the discharge/admit diagnosis, lab results, to return to the emergency department if symptoms worsen or persist or if there are any questions or concerns that arise at home. ED course: All lab work with patient. Most likely this is a viral gastroenteritis. Patient verbalizes understanding to return to ER if any of these conditions worsen. Patient will be prescribed antiemetic. Patient is then to wait 20 to 30 minutes and then start oral fluid intake and slowly work up eating bland foods for the next few days. Patient agrees with discharge and states she feels better after the fluid and nausea medicine.. 03/25 17:15 Order name: CBC with Diff; Complete Time: 18:11 [facility] 03/25 18:12 Interpretation: Within normal limits. 6 03/25 17:15 Order name: CMP; Complete Time: 19:20 [facility] 03/25 19:21 Interpretation: Normal except: GFR 86; Patient given IV Bolus in ER due to Vomiting. . [facility] 03/25 17:17 Order name: Test, Serum; Complete Time: 18:35 [facility] 03/25 18:35 Interpretation: Within normal limits. [facility] 03/25 17:17 Order name: COVID-19/FLU A+B (Document "Date of Onset" if Symptomatic); Complete Time: 6 19:12 03/25 17:15 Order name: IV Saline Lock; Complete Time: 17:46 [facility] 03/25 17:15 Order name: Labs collected and sent; Complete Time: 17:46 [facility] 03/25 18:10 Order name: EKG - Nurse/Tech; Complete Time: 18:10 jg9 Administered Medications: 17:46 Drug: NS 0.9% 1000 ml Route: IV; Rate: 1 bolus; Site: right forearm; jg9 17:47 Drug: Zofran (Ondansetron) 4 mg Route: IVP; Site: right forearm; jg9 18:10 Follow up: Response: No adverse reaction jg9 Point of Care Testin:42 n/a-see labs jg9 Ranges: Critical Glucose Levels:Adult <50 mg/dl or >400 mg/dl <40 mg/dl or >180 mg/dl Disposition Summary: 03/25/22 19:27 Discharge Ordered Location: Home sm6 Problem: new sm6 Symptoms: are resolved sm6 Condition: Stable sm6 Diagnosis - Other specified noninfective gastroenteritis and colitis sm6 Followup: sm6 - With: Private Physician - When: - Reason: Worsening of condition, Recheck today's complaints, Continuance of care, Re-evaluation by your physician Discharge Instructions: - Discharge Summary Sheet sm6 - Nausea and Vomiting, Adult, [id number] 6 Forms: - Medication Reconciliation Form 6 - Thank You Letter sm6 - Antibiotic Education sm6 - Prescription Opioid Use sm6 Prescriptions: - Zofran 4 mg Oral Tablet - take 1 tablet by ORAL route every 12 hours As needed; 6 tablet; Refills: 0, sm6 Product Selection Permitted Signatures: Dispatcher [employer] EDAlexus Talamantes RN RN ld1 Betzy Mcdonnell RN RN jg9 Cristy Gallardo NP SURFACER OPERATOR sm6 Corrections: (The following items were deleted from the chart) 17:43 17:40 Differential Diagnosis: , Viral illness including COVID, influenza, or sm6 gastrointestinal virus. Dehydration or electrolyte imbalance., sm6 19:21 19:20 Within normal limits. [facility]
[2022-03-25 21:52] VITALS: TEMP 98.1
[2022-03-25 21:56] VITALS: BP 118/73; O2SAT 97
--- NOTE | 2022-03-26 07:44 | EKG ---
Test Date: 2022-03-25 Test Time: 17:48:24 Instrument And Controls Technician: WHITNEY MEASUREMENT RESULTS: Intervals: Rate: 69 VA: 152 QRSD: 86 QT: 360 QTc: 385 [place]: P: 64 VA: 152 QRS: 84 T: 53 INTERPRETIVE STATEMENTS: Sinus rhythm with marked sinus arrhythmia Otherwise normal ECG Compared to ECG 04/19/2020 15:54:23 Myocardial infarct finding no longer present Electronically Signed On 03-26-22 07:42:19 CDT by Aden Us
== END 2022-03-25 19:46 | disposition home or self-care (01) ==
LOC: ER 16:42
DX: K52.89 Other specified noninfective gastroenteritis and colitis (principal); Z20.822 Contact with and (suspected) exposure to COVID-19
CPT/HCPCS: 93005; 85025; 36415; 84703; 80053; 0240U; 96374; 99284; J7030; J2405

== ENCOUNTER 2022-12-30 21:15 | Emergency (ER) | payer BC, OTHER ==
--- OUTSIDE RECORDS SUMMARY | 2022-12-30 21:44 | XMS REPORT | Continuity of Care Document ---
:2000 Author Organization [facility] t Address [address] [place] [address] Care Team Providers Name Role Phone PCP, PATIENT DOES NOT HAVE A Primary Care Physician UnavailPETRONA Demarco Attending Clinician Unavailable DALE VARGAS Attending Clinician Unavailable Dale Vargas MD Attending Clinician DALE VARGAS Admitting Clinician Unavailable Payers Payer Name Policy Type Policy Number Effective Date Expiration Date Jesus perkins [facility] [id number] 2019 00:00:00 Problems Condition Condition Condition Status Onset Resolution Last Treating Co mments Source Name Details Category Date Date Treatment Clinician Date Chlamydia Chlamydia Disease Active Uni vers 6-05 ity of 00:00: [place] [address] Medical Branch High-risk High-risk Disease Active 2018- Uni vers 6-04 ity of in first in first 00:00: [place] trimester trimester 00 Medi zana Branch BMI BMI Disease Active 2019-0 Univers 33.0-33.9, 33.0-33.9, 6-04 it y of adult adult 00:00: [place] 00 Medical Branch High risk High risk Disease Active 2019-0 Uni vers teen teen 6-04 [place] Medica l trimester trimester Bran ch Depression Depression Disease Active Overview : Univers Formattin ity of g of this [place] note Medical might be Branch different from the original. ongoing, not currently taking medicatio ns, not seeing Md at this time. Asthma Asthma Disease Active Overview: Univer s Formattin ity of g of this [place] note Medical might be Branch different from the original. last attack 2013 Anxiety Anxiety Disease Active Overview: Univ ers Formattin ity of g of this [place] note Medical might be Branch different from the original. ongoing, not currently taking medicatio ns, not seeing Md at this time. Allergies, Adverse Reactions, Alerts Allergy Allergy Status Severity Reaction(s) Onset Inactive Treating Comm ents Source Name Type Date Date Clinician Cinnamon Propensi Active Hives 2015-11 Univer s ty to 0-11 ity of adverse 00:00: [place] reaction 00 Medical s Branch CINNAMON DRUG Active Hives 2015-11 Univers INGREDI 0-11 ity of 00:00: [place] 00 Medical Branch Social History Social Habit Start Date Stop Date Quantity Comments Source Exposure to 2022-07-31 2022-08-10 Not sure [facility] SARS-CoV-2 00:00:00 14:14:00 [place] Medical (event) Branch Alcohol intake 2020-02-10 2020-02-10 Current [facility] 00:00:00 00:00:00 non-drinker of [facility] alcohol (finding) [place] Tobacco use and 2014-03-19 2014-03-19 Smokeless tobacco Un iversity of exposure 00:00:00 00:00:00 non-user [facility] [place] [facility] Sex Assigned At 2000 2000 ANASTASIIA Lowe 00:00:00 00:00:00 [facility] Smoking Status Start Date Stop Date Source Never smoked tobacco [facility] Medications Ordered Filled Start Stop Current Ordering Indication Dosage Frequency Signature Comments Components Source Medication Medication Date Date Medication? Clinician (SIG) Name Name buPROPion Yes [id number] 150mg Take 1 U nivers XL 7-02 tablet by ity of (WELLBUTRIN 00:00: mouth [place] XL) 150 mg 00 daily. Medical 24 hr Branch tablet promethazin Yes Take by Uni vers e HCl 6-04 mouth. ity of (PROMETHAZI 14:12: [place] NE ORAL) 45 Medical Branch PNV 67-iron 2018- Yes [id number] 1{capsu Take 1 Univers ps-folate 6-04 le} capsule by ity of no.1-dha 00:00: mouth [place] (VITAFOL 00 daily. Medical ULTRA) 29 Branch mg iron- 1 mg-200 mg Cap Immunizations Ordered Filled Immunization Date Status Comments Sour e Immunization Name Name TDAP 2013-06-28 Completed [facility] 00:00:00 [facility] [place] [facility] Vital Signs Vital Name Observation Time Observation Value Comments Source Systolic blood 2022-08-10 16:40:00 150 mm[Hg] Univer sity of pressure [facility] [place] [facility] Diastolic blood 2022-08-10 16:40:00 84 mm[Hg] Unive rsity of pressure [facility] [place] [facility] Heart rate 2022-08-10 16:40:00 93 /min [facility] Body temperature 2022-08-10 16:40:00 36.67 [facility] Res[facility] rate 2022-08-10 16:40:00 18 /min [facility] Body height 2022-08-10 16:40:[address] [facility] Body weight 2022-08-10 16:40:[address] [facility] BMI 2022-08-10 16:40:00 32.86 kg/m2 [facility] Oxygen saturation in 2022-08-10 16:40:00 98 /min [facility] Arterial blood by [facility] Pulse oximetry Branch Procedures Procedure Date / Time Performed Performing Clinician Lashawn munroe POCT TEST 2022-08-10 19:17:[address] [facility] COVID-19 (ID NOW 2022-08-10 19:15:00 Dale Vargas [facility] RAPID TESTING) [facility] CONSENT/REFUSAL FOR 2022-08-10 16:30:31 Doctor Unassigned, No Un [facility] DIAGNOSIS AND Name [facility] TREATMENT Encounters Start End Encounter Admission Attending Care Care Encounter Source Date/Time Date/Time Type Type Clinicians Facility Department ID 2022-02-19 [facility] [id number] [place] 19:26:37 [id number] [facility] 2022-08-10 2022-08-10 Emergency X KATIA VARGAS ERT [id number] Univers 11:42:00 15:14:00 DALE tejada [facility] 2022-08-10 2022-08-10 Emergency KATIA Vargas [id number] Univers 11:42:00 15:14:00 Dale BARROW [id number] i Julio Cesar [id number] [facility] [id number] [address] Results Test Description Test Time Test Comments Results Result Comments Source POCT TEST 2022-08-10 19:17:00 Test Item Value Reference Range Interpretation Comme nts POCT PREG (test code = 1605) negative On board controls acceptable with C Line (test code = 3574) present POCT PREG LOT # (test code = 3575) [id number] POCT PREG TEST DATE (test code = 3576) 10/27/2023 Lab Interpretation (test code = 63697-5) Normal [facility]
--- NOTE | 2022-12-30 22:52 | ER ---
Nurse's Notes [facility] [place] [facility] Name: Gayathri Garcia Age: 22 yrs Sex: Female : 2000 Arrival Date: 12/30/2022 Time: 21:28 Bed 12 Private MD: Diagnosis: Other otitis externa, left ear-Traumatic;Wheezing Presentation: 12/30 21:45 Chief complaint: Patient states: My ears have also been bothering me. I feel like there kd3 might be water in them. I tried to clean my ear and my left ear started bleeding a little bit. Coronavirus screen: Vaccine status: Patient reports being unvaccinated. Ebola Screen: No symptoms or risks identified at this time. Initial Sepsis Screen: Does the patient meet any 2 criteria? No. Patient's initial sepsis screen is negative. Does the patient have a suspected source of infection? No. Patient's initial sepsis screen is negative. Risk Assessment: Do you want to hurt yourself or someone else? Patient reports no desire to harm self or others. Onset of symptoms was December 30, 2022. 21:45 Method Of Arrival: Ambulatory kd3 21:45 Acuity: RYANN 4 kd3 Triage Assessment: 21:48 General: Appears in no apparent distress. Behavior is calm, cooperative. Pain: kd3 Complains of pain in right ear and left ear. 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 - Social history:: Smoking status: Patient denies any tobacco usage or history of. Smoking status: Reported history of juuling and/or vaping. Screenin:15 [facility] ED Fall Risk Assessment (Adult) History of falling in the last 3 months, 3 including since admission No falls in past 3 months (0 pts) Confusion or Disorientation No (0 pts) Intoxicated or Sedated No (0 pts) Impaired Gait No (0 pts) Mobility Assist Device Used No (0 pt) Altered Elimination No (0 pt) Score/Fall Risk Level 0 - 2 = Low Risk. Abuse screen: Denies threats or abuse. Denies injuries from another. Nutritional screening: No deficits noted. Tuberculosis screening: No symptoms or risk factors identified. Assessment: 22:15 General: Appears in no apparent distress. uncomfortable, Behavior is calm, cooperative, eh3 appropriate for age. Pain: Complains of pain in left ear and right ear. Neuro: Level of Consciousness is awake, alert, obeys commands, Oriented to person, place, time, situation. Cardiovascular: Capillary refill < 3 seconds Patient's skin is warm and dry. Respiratory: Airway is patent Respiratory effort is even, unlabored, Respiratory pattern is regular, symmetrical. EENT: Reports decreased hearing. 12/31 11:57 Reassessment: Outside pharmacy called requesting to change RX for Cortisporin-TC to jl7 Cortisporin. This nurse asked Dr. Olivo of requested change, Dr. Olivo gave VO to allow pharmacy to make the change. Vital Signs: 12/30 21:45 BP 112 / 71; Pulse 66; Resp 17; Temp 98.1(O); Pulse Ox 100% ; Weight 104.33 kg; Height kd3 5 ft. 10 in. (177.80 cm); 22:15 BP 106 / 77; Pulse 70; Resp 18; Pulse Ox 100% on R/A; eh3 21:45 Body Mass Index 33.00 (104.33 kg, 177.80 cm) kd3 ED Course: 21:28 Patient arrived in ED. ja2 21:32 Luz Heart FNP-C is PHCP. snw 21:32 Yousif Lee MD is Attending Physician. snw 21:48 Triage completed. kd3 21:48 Arm band placed on right wrist. kd3 22:13 Rosangela Lyle, RN is Primary Nurse. eh3 22:15 Patient has correct armband on for positive identification. Bed in low position. Call eh3 light in reach. NIBP on. Door closed. Noise minimized. 23:06 No provider procedures requiring assistance completed. Patient did not have IV access eh3 during this emergency room visit. Administered Medications: 23:05 Drug: Cortisporin (neomycin-polymyxin) Drops 4 drops Route: Otic; Site: left ear; eh3 23:06 Follow up: Response: Medication administered at discharge. eh3 23:05 Drug: ZyrTEC - Cetirizine 10 mg Route: PO; eh3 23:05 Follow up: Response: Medication administered at discharge. eh3 Medication: 23:06 VIS not applicable for this client. eh3 Outcome: 22:51 Discharge ordered by . messi 23:14 Discharged to home ambulatory, with family. eh3 23:14 Condition: stable 23:14 Discharge instructions given to patient, family, Instructed on discharge instructions, follow up and referral plans. medication usage, Demonstrated understanding of instructions, follow-up care, medications, Prescriptions given X 2. 23:15 Patient left the ED. eh3 Signatures: Luz eHart, SECURITIES UNDERWRITER-C SECURITIES UNDERWRITER-Csnw Gary Acuña, RN RN jl7 Cecile Urbina Kyli, RN RN kd3 Rosangela Lyle RN RN eh3
--- NOTE | 2022-12-30 22:52 | EDPHYS ---
Physician Documentation [facility] Name: Gayathri Garcia Age: 22 yrs Sex: Female : 2000 Arrival Date: 12/30/2022 Time: 21:28 Bed 12 Private MD: ED Physician Yousif Lee HPI: 12/30 23:21 This 22 yrs old Female presents to ER via Ambulatory with complaints of Ear Pain. snw 23:21 The patient presents with a fullness. The complaints affect the right ear and left ear. snw Onset: The symptoms/episode began/occurred acutely. Severity of symptoms: At their worst the symptoms were mild. It is unknown whether or not the patient has had similar symptoms in the past. noted blood on q-tip post cleaning ear. 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 - Social history:: Smoking status: Patient denies any tobacco usage or history of. Smoking status: Reported history of juuling and/or vaping. ROS: 23:22 Constitutional: Negative for fever, chills, and weight loss, Eyes: Negative for injury, snw pain, redness, and discharge, Cardiovascular: Negative for chest pain, palpitations, and edema, Respiratory: Negative for shortness of breath, cough, wheezing, and pleuritic chest pain, Abdomen/GI: Negative for abdominal pain, nausea, vomiting, diarrhea, and constipation. 23:22 ENT: Positive for ear pain. Exam: 23:22 Constitutional: This is a well developed, well nourished patient who is awake, alert, snw and in no acute distress. Head/Face: Normocephalic, atraumatic. Eyes: Pupils equal round and reactive to light, extra-ocular motions intact. Lids and lashes normal. Conjunctiva and sclera are non-icteric and not injected. Cornea within normal limits. Periorbital areas with no swelling, redness, or edema. 23:22 Neck: Trachea midline, no thyromegaly or masses palpated, and no cervical lymphadenopathy. Supple, full range of motion without nuchal rigidity, or vertebral point tenderness. No Meningismus. Chest/axilla: Normal chest wall appearance and motion. Nontender with no deformity. No lesions are appreciated. Cardiovascular: Regular rate and rhythm with a normal S1 and S2. No gallops, murmurs, or rubs. Normal PMI, no JVD. No pulse deficits. 23:22 Abdomen/GI: Soft, non-tender, with normal bowel sounds. No distension or tympany. No guarding or rebound. No evidence of tenderness throughout. Back: No spinal tenderness. No costovertebral tenderness. Full range of motion. Skin: Warm, dry with normal turgor. Normal color with no rashes, no lesions, and no evidence of cellulitis. 23:22 ENT: External ear(s): are unremarkable, Ear canal(s): abrasion with blood clot over fresh injury to left ear canal, TM intact bilaterally, TM's: are normal. 23:22 Respiratory: the patient does not display signs of respiratory distress, Respirations: normal, Breath sounds: wheezing: expiratory is heard diffusely. Vital Signs: 21:45 BP 112 / 71; Pulse 66; Resp 17; Temp 98.1(O); Pulse Ox 100% ; Weight 104.33 kg; Height kd3 5 ft. 10 in. (177.80 cm); 22:15 BP 106 / 77; Pulse 70; Resp 18; Pulse Ox 100% on R/A; eh3 21:45 Body Mass Index 33.00 (104.33 kg, 177.80 cm) kd3 MDM: 22:11 Patient medically screened. snw 23:24 Differential diagnosis: otitis media, otitis externa. Data reviewed: vital signs, snw nurses notes. Care significantly affected by the following Social Determinants of Health: pt vapes. Counseling: I had a detailed discussion with the patient and/or guardian regarding: the historical points, exam findings, and any diagnostic results supporting the discharge/admit diagnosis, the need for outpatient follow up, for definitive care, to return to the emergency department if symptoms worsen or persist or if there are any questions or concerns that arise at home. Special discussion: Based on the history and exam findings, there is no indication for further emergent testing or inpatient evaluation. I discussed with the patient/guardian the need to see the primary care provider for further evaluation of the symptoms. Administered Medications: 23:05 Drug: Cortisporin (neomycin-polymyxin) Drops 4 drops Route: Otic; Site: left ear; [facility] 23:06 Follow up: Response: Medication administered at discharge. [facility] 23:05 Drug: ZyrTEC - Cetirizine 10 mg Route: PO; 3 23:05 Follow up: Response: Medication administered at discharge. [facility] Disposition: 12/31 03:11 Co-signature as Attending Physician, Yousif Lee MD I reviewed the patient's care rt provided by the Advanced Practice Provider and agree with the diagnosis and treatment plan. Disposition Summary: 12/30/22 22:51 Discharge Ordered Location: Home snw Condition: Stable snw Diagnosis - Other otitis externa, left ear - Traumatic snw - Wheezing snw Followup: snw - With: Private Physician - When: 2 - 3 days - Reason: Recheck today's complaints, Continuance of care, Re-evaluation by your physician Followup: snw - With: Emergency Department - When: As needed - Reason: Worsening of condition Discharge Instructions: - Discharge Summary Sheet snw - Allergies, Adult snw - Ear Drops, Adult snw - Otitis Externa snw - Steps to Quit Smoking snw - Health Risks of Smoking snw - Cool Mist Vaporizer snw - Cough, Adult snw Forms: - Medication Reconciliation Form snw - Thank You Letter snw - Antibiotic Education snw - Prescription Opioid Use snw Prescriptions: - albuterol sulfate 90 mcg/actuation Inhalation HFA aerosol inhaler - inhale 2 puff by INHALATION route every 4-6 hours for 10 days; 1 vial; Refills: snw 0, Product Selection Permitted - Cortisporin-TC 3.3-3-10-0.5 mg/mL Otic Suspension - instill 4 drops by OTIC route every 6 hours; 1 bottle; Refills: 0, Product snw Selection Permitted Signatures: Luz Heart, CHIP-C COMPUTER OPERATIONS ANALYST-Csnw Garima [place] RN RN 3 Rosangela Lyle RN RN 3 Yousif Lee MD MD rt
[2022-12-30] MEDS ORDERED: CETIRIZINE HCL 5 MG TABLET ONE (23:05)
[2022-12-30] MEDS ORDERED: NEOMY/POLY/HC 1% OTIC DROPS ONE (23:05)
[2022-12-31 00:17] VITALS: TEMP 98.1; O2SAT 100
[2022-12-31 00:18] VITALS: BP 106/77
== END 2022-12-30 23:15 | disposition home or self-care (01) ==
LOC: ER 21:15
DX: H60.8X2 Other otitis externa, left ear (principal); R06.2 Wheezing
CPT/HCPCS: 99283

== ENCOUNTER 2023-07-25 20:08 | Emergency (ER) | payer BC, OTHER ==
--- OUTSIDE RECORDS SUMMARY | 2023-07-25 21:08 | XMS REPORT | Continuity of Care Document ---
:2000 Author Organization [facility] t Address [address] [place] [address] Care Team Providers Name Role Phone PETRONA CHADWICK Primary Care Physician Unavailable PETRONA CHADWICK Attending Clinician Unavailable DALE VARGAS Attending Clinician Unavailable Dale Vargas MD Attending Clinician DALE VARGAS Admitting Clinician Unavailable Payers Payer Name Policy Type Policy Number Effective Date Expiration Date Jesus perkins [id number] 2022 00:00:00 [facility] [id number] 2019 00:00:00 Problems Condition Condition Condition Status Onset Resolution Last Treating Co mments Source Name Details Category Date Date Treatment Clinician Date Chlamydia Chlamydia Disease Active Uni vers 6-05 ity of 00:00: [address] Branch High-risk High-risk Disease Active Uni vers 6-04 ity of in first in first 00:00: [place] trimester trimester 00 [facility] Branch BMI BMI Disease Active 2019- Univers 33.0-33.9, 33.0-33.9, 6-04 it y of adult adult 00:00: [address] Branch High risk High risk Disease Active 2019 Uni vers teen teen 6-04 it[place] Medica l trimester trimester Bran ch Depression Depression Disease Active Overview : Univers Formattin ity of g of this [place] note Medical might be Branch different from the original. ongoing, not currently taking medicatio ns, not seeing Md at this time. Asthma Asthma Disease Active Overview: Univer s Formattin ity of g of this [place] note Medical might be Branch different from the original. last attack 2013 Anxiety Anxiety Disease Active Overview: Univ ers Formattin ity of g of this [place] note Medical might be Branch different from [...] Source Exposure to 2022-07-31 2022-08-10 Not sure [facility] SARS-CoV-2 00:00:00 14:14:00 [place] Medical (event) Branch Alcohol intake 2020-02-10 2020-02-10 [facility] 00:00:00 00:00:00 non-drinker of [facility] alcohol (finding) Branch Tobacco use and 2014-03-19 2014-03-19 Smokeless tobacco Un iversity of exposure 00:00:00 00:00:00 non-user [facility] Sex Assigned At [address] Tesha grullon 00:00:00 00:00:00 [facility] Center Smoking Status Start Date Stop Date Source Never smoked tobacco [facility] Medications Ordered Filled Start Stop Current Ordering Indication Dosage Frequency Signature Comments Components Source Medication Medication Date Date Medication? Clinician (SIG) Name Name buPROPion Yes [id number] 150mg Take 1 U nivers XL 7-02 tablet by ity of (WELLBUTRIN 00:00: mouth [place] XL) 150 mg 00 daily. Medical 24 hr Branch tablet promethazin Yes Take by Uni vers e HCl 6-04 mouth. ity of (PROMETHAZI 14:12: [place] NE ORAL) 45 Medical Branch PNV 67-iron 2018- Yes [id number] 1{capsu Take 1 Univers ps-folate 6-04 le} capsule by ity of no.1-dha 00:00: mouth [place] (VITAFOL 00 daily. Medical ULTRA) 29 Branch mg iron- 1 mg-200 mg Cap Immunizations Ordered Filled Immunization Date Status Comments Lashawn e Immunization Name Name TDAP 2013-06-28 Completed [facility] 00:00:00 [facility] Vital Signs Vital Name Observation Time Observation Value Comments Source Systolic blood 2022-08-10 16:40:00 150 mm[Hg] Univer sity of pressure [facility] Diastolic blood 2022-08-10 16:40:00 84 mm[Hg] Unive rsity of [facility] Heart rate 2022-08-10 16:40:00 93 /min [facility] Body temperature 2022-08-10 16:40:00 36.67 Reina [facility] Respiratory rate 2022-08-10 16:40:00 18 /min [facility] Body height 2022-08-10 16:40:00 177.8 cm [facility] Body weight 2022-08-10 16:40:00 103.874 kg [facility] BMI 2022-08-10 16:40:00 32.86 kg/m2 [facility] Oxygen saturation in 2022-08-10 16:40:00 98 /min [facility] blood by [facility] Pulse oximetry [place] Procedures Procedure Date / Time Performed Performing Clinician Lashawn munroe POCT TEST 2022-08-10 19:17:00 Dale Vargas [facility] COVID-19 (ID NOW 2022-08-10 19:15:00 Dale Vargas [facility] RAPID TESTING) [facility] CONSENT/REFUSAL FOR 2022-08-10 16:30:31 Doctor Unassigned, No Un [facility] DIAGNOSIS AND Name [facility] TREATMENT Encounters Start End Encounter Admission Attending Care Care Encounter Source Date/Time Date/Time Type Type Clinicians Facility Department ID 2022-02-19 Outpatient [facility] [id number] [place] 19:26:37 [id number] [facility] 2023-01-18 2023-01-18 Outpatient Tory CHADWICK [facility] [id number] [facility] [place] [facility] 13:30:00 13:30:00 PETRONA starr f [facility] 2022-08-10 2022-08-10 Emergency [facility] [id number] Univers 11:42:00 15:14:00 DALE tejada [facility] 2022-08-10 2022-08-10 [facility] [id number] Univers 11:42:00 15:14:00 Dale BARROW [id number] i ava [facility] [id number] [facility] [id number] [address] Results Test Description Test Time Test Comments Results Result Comments Source POCT TEST 2022-08-10 19:17:00 Test Item Value Reference Range Interpretation Comme nts POCT PREG (test code = 1605) negative On board controls acceptable with C Line (test code = 3574) present POCT PREG LOT # (test code = 3575) [id number] POCT PREG TEST DATE (test code = 3576) 10/27/2023 Lab Interpretation (test code = 04568-4) Normal [facility]
[2023-07-25] MEDS ORDERED: ONDANSETRON 4 MG (ODT) TAB ONE (21:29)
--- NOTE | 2023-07-25 22:26 | ER ---
Nurse's Notes [facility] Name: Gayathri Garcia Age: 22 yrs Sex: Female : 2000 Arrival Date: 07/25/2023 Time: 20:08 Bed IW2 Private MD: Diagnosis: SARS-associated coronavirus as the cause of diseases classified elsewhere Presentation: 07/25 20:50 Chief complaint: Patient states: COVID S/S x3 DAYS. Coronavirus screen: cough unrelated bp to allergies, fever, headache, nausea, Client presents with at least one sign or symptom that may indicate coronavirus-19. Standard/surgical mask placed on the client. Ebola Screen: No symptoms or risks identified at this time. Initial Sepsis Screen: Does the patient meet any 2 criteria? No. Patient's initial sepsis screen is negative. Does the patient have a suspected source of infection? No. Patient's initial sepsis screen is negative. Risk Assessment: Do you want to hurt yourself or someone else? Patient reports no desire to harm self or others. Onset of symptoms is unknown. 20:50 Method Of Arrival: Ambulatory bp 20:50 Acuity: RYANN 4 bp Historical: - Allergies: 20:52 No Known Allergies; bp - PMHx: 20:52 Anxiety; Depression; hypertension during ; bp - Immunization history:: Adult Immunizations up to date. - Social history:: Smoking status: Patient denies any tobacco usage or history of. Screenin:35 [facility] ED Fall Risk Assessment (Adult) History of falling in the last 3 months, kl including since admission No falls in past 3 months (0 pts) Confusion or Disorientation No (0 pts) Intoxicated or Sedated No (0 pts) Impaired Gait No (0 pts) Mobility Assist Device Used No (0 pt) Altered Elimination No (0 pt) Score/Fall Risk Level 0 - 2 = Low Risk Oriented to surroundings, Maintained a safe environment. Abuse screen: Denies threats or abuse. Nutritional screening: No deficits noted. Tuberculosis screening: No symptoms or risk factors identified. Assessment: 22:33 Reassessment: Patient appears in no apparent distress at this time. General: Appears in kl no apparent distress. Pain: Complains of pain in generaliozed pain. Vital Signs: 20:50 BP 130 / 71; Pulse 103; Resp 20; Temp 98.9; Pulse Ox 100% ; Weight 104.78 kg; Height 5 bp ft. 10 in. ; 20:50 Body Mass Index 33.14 (104.78 kg, 177.8 cm) bp ED Course: 20:09 Patient arrived in ED. ag3 20:10 Laura Wheeler FNP-C is [facility]. kb 20:11 Oscar Jimenez MD is Attending Physician. kb 20:51 Triage completed. bp 20:52 Arm band placed on. bp 21:40 COVID-19 SARS RT PCR Sent. kl 21:40 Strep Sent. kl 21:40 Flu Sent. kl Administered Medications: 21:24 Drug: Ondansetron PO 4 mg Route: PO; Medication: 22:34 VIS not applicable for this client. Outcome: 22:26 Discharge ordered by . kb 22:35 Discharged to home kl 22:35 Condition: stable 22:35 Discharge instructions given to patient, Instructed on discharge instructions, follow up and referral plans. Demonstrated understanding of instructions, follow-up care. 22:35 Patient left the ED. kl Signatures: Laura Wheeler FNP-C FNP-Ckb Lewis, Kimberly, RN RN Dean Camara, RN RN Bren Govea ag3
--- NOTE | 2023-07-25 22:26 | EDPHYS ---
Physician Documentation [facility] Name: Gayathri Garcia Age: 22 yrs Sex: Female : 2000 Arrival Date: 07/25/2023 Time: 20:08 Bed IW2 Private MD: ED Physician Oscar Jimenez HPI: 07/26 01:14 This 22 yrs old Female presents to ER via Ambulatory with complaints of COVID LIKE kb SYMPTOMS. 01:14 The patient or guardian reports cough, that is intermittent, described as mild, flu kb symptoms, low-grade fever, myalgias. Onset: The symptoms/episode began/occurred 3 day(s) ago. Severity of symptoms: At their worst the symptoms were mild, moderate, in the emergency department the symptoms are unchanged. Modifying factors: The symptoms are alleviated by nothing, the symptoms are aggravated by nothing. Associated signs and symptoms: Pertinent positives: fever, nausea, rhinorrhea, sore throat, vomiting. The patient has not experienced similar symptoms in the past. The patient has not recently seen a physician. Patient reports cough, congestion, runny nose, body aches, sore throat, vomiting started on Tuesday.. Historical: - Allergies: 07/25 20:52 No Known Allergies; bp - PMHx: 20:52 Anxiety; Depression; hypertension during ; bp - Immunization history:: Adult Immunizations up to date. - Social history:: Smoking status: Patient denies any tobacco usage or history of. ROS: 07/26 01:13 Cardiovascular: Negative for chest pain, palpitations, and edema. kb Constitutional: Positive for body aches, chills, fatigue, fever, malaise. ENT: Positive for rhinorrhea, sinus congestion, sore throat. Respiratory: Positive for cough. All other systems are negative. Exam: 01:13 Constitutional: This is a well developed, well nourished patient who is awake, alert, kb and in no acute distress. Head/Face: Normocephalic, atraumatic. ENT: Moist Mucous membranes Cardiovascular: Regular rate and rhythm with a normal S1 and S2. No gallops, murmurs, or rubs. No pulse deficits. Respiratory: Respirations even and unlabored. No increased work of breathing. Talking in full sentences Abdomen/GI: Soft, non-tender. No distention Skin: Warm, dry with normal turgor. Normal color. MS/ Extremity: Pulses equal, no cyanosis. Neurovascular intact. Full, normal range of motion. Neuro: Awake and alert, GCS 15, oriented to person, place, time, and situation. Moves all extremities. Normal gait. Vital Signs: 07/25 20:50 BP 130 / 71; Pulse 103; Resp 20; Temp 98.9; Pulse Ox 100% ; Weight 104.78 kg; Height 5 bp ft. 10 in. ; 20:50 Body Mass Index 33.14 (104.78 kg, 177.8 cm) bp MDM: 20:40 Patient medically screened. 07/26 01:13 Differential diagnosis: Flu, COVID, URI, pneumonia, strep. Data reviewed: vital signs, kb nurses notes. Test considered but Not performed: X-ray: Chest x-ray is considered but lungs clear bilaterally, respirations even and unlabored, oxygen 100% on room air. Counseling: I had a detailed discussion with the patient and/or guardian regarding the historical points, exam findings, and any diagnostic results supporting the discharge/admit diagnosis, lab results, the need for outpatient follow up, a family practitioner, to return to the emergency department if symptoms worsen or persist or if there are any questions or concerns that arise at home. 07/25 20:40 Order name: Flu; Complete Time: 22:25 kb 07/25 20:40 Order name: Strep; Complete Time: 22:25 kb 07/25 20:40 Order name: COVID-19 SARS RT PCR; Complete Time: 22:25 kb 07/25 22:12 Order name: Throat Culture EDMS Administered Medications: 07/25 21:24 Drug: Ondansetron PO 4 mg Route: PO; Disposition Summary: 07/25/23 22:26 Discharge Ordered Location: Home kb Condition: Stable kb Diagnosis - SARS-associated coronavirus as the cause of diseases classified elsewhere kb Followup: kb - With: Emergency Department - When: As needed - Reason: Worsening of condition Followup: kb - With: Private Physician - When: 2 - 3 days - Reason: Recheck today's complaints, Continuance of care, Re-evaluation by your physician Discharge Instructions: - Discharge Summary Sheet kb - COVID-19 kb - Viral Illness, Adult kb Forms: - Medication Reconciliation Form kb - Thank You Letter kb - Antibiotic Education kb - Prescription Opioid Use kb - Patient Portal Instructions kb - Leadership Thank You Letter kb - Work release form kl Signatures: Dispatcher [employer] Laura Vega FNP-Kranthi SAUNDERS-Kandy Rice, RN RN Dean Camara RN RN bp
[2023-07-26 00:51] VITALS: BP 130/71; TEMP 98.9; O2SAT 100
== END 2023-07-25 22:35 | disposition home or self-care (01) ==
LOC: ER 20:08
DX: U07.1 COVID-19 (principal)
CPT/HCPCS: 87070; 87081; 87635; 87804 ×2; 99283; Q0162

== ENCOUNTER 2025-08-27 00:15 | Emergency (ER) | payer OTHER ==
[2025-08-27] MEDS ORDERED: FAMOTIDINE 20 MG/2 ML VIAL IV ONE (00:26)
[2025-08-27] MEDS ORDERED: ONDANSETRON 4 MG/2 ML VIAL ONE (00:26)
[2025-08-27] MEDS ORDERED: MORPHINE 4 MG/ML SYR ONE (00:26)
[2025-08-27] MEDS ORDERED: NA CHLORIDE 0.9% 1,000 ML ONE (00:26)
[2025-08-27 01:28] LABS: Absolute Lymphocytes (CBC) 1.5 K/uL (0.7-4.9); Hematocrit 40.4 % (36.0-45.0); Hemoglobin 13.7 g/dL (12.0-15.0); MCH 32.2 pg (27.0-35.0); MCHC 33.9 g/dL (32.0-36.0); MCV 94.9 fL (80-100); MPV 8.6 fL (7.6-11.3); Nucleated RBC Absolute Count 0.0 (0-0); Nucleated Red Blood Cells % 0.1 % (0-0); RBC Red Blood Cell Count 4.26 M/uL (3.86-4.86); White Blood Count 6.60 thou/uL (4.3-10.9)
[2025-08-27 01:48] LABS: ALT/SGPT 23.0 U/L (13-56); AST/SGOT 18.0 U/L (15-37); Albumin 3.5 g/dL (3.4-5.0); Albumin/Globulin Ratio 1.1 (1.1-1.8); Alkaline Phosphatase 63.0 U/L (45-117); Anion Gap 9.9 mEq/L (5.0-15.0); BUN Blood Urea Nitrogen 18.0 mg/dL (7-18); Globulin 3.3 g/dL (2.3-3.5); Glucose Level 110.0 mg/dL (74-106); Lipase 46.0 U/L (13-75); Potassium 2.9 mEq/L (3.5-5.1)
[2025-08-27] MEDS ORDERED: POTASSIUM 25 MEQ EFFERV TAB ONE (02:06)
[2025-08-27] MEDS ORDERED: NS KCL 20MEQ 1,000 ML IV ONE (02:08)
--- NOTE | 2025-08-27 03:35 | RAD REPORT ---
INDICATION: ABD PAIN COMPARISON: CT abdomen pelvis April 19, 2020 TECHNIQUE: Enhanced CT of the abdomen and pelvis performed per protocol. Oral contrast was not administered. Mul tiplanar reconstructions were provided. Dose reduction techniques were utilized for this exam including automated exposure control, adjustmen ts to mA and/or kV according to patient's size, and the use of iterative reconstruction techniques. FINDINGS: LOWER CHEST: Lung bases are clear. LIVER: Unremarkable. SPLEEN: Unremarkable. PANCREAS: Unremarkable. ADRENALS: Unremarkable. KIDNEYS: Unremarkable. GALLBLADDER: Cholelithiasis without evidence of cholecystitis. VESSELS: Aortoiliac system normal in course and caliber. BOWEL: Mild diffuse gastric wall thickening. Relatively diffusely fluid-filled small bowel. No bowel obstruction. APPENDIX: Normal. FLUID: Small amount of pelvic free fluid. ADENOPATHY: No pathologic adenopathy. BLADDER: Unremarkable. PELVIS: 2.0 cm involuting right ovarian cyst. Uterus is unremarkable. BONES: No acute bony abnormality. SOFT TISSUES: Unremarkable. IMPRESSION: 1. Gastroenteritis. 2. 2.0 cm involuting right ovarian cyst with a small amount of pelvic free fluid. 3. Cholelithiasis without evidence of cholecystitis. Electronically signed by: Alfonso Bazzi DO 08/27/2025 03:31 AM CDT NR Due to temporary technical issues with the [employer] reporting system, reports are being marisol d by the in-house radiologist without review as a courtesy to ensure prompt reporting the interpreting radiologist is fully responsible for the content of the report. Transcribed Date/Time: 08/27/2025 3:34 AM
--- NOTE | 2025-08-27 03:49 | ER ---
Nurse's Notes [facility] Name: Gaaythri Garcia Age: 24 yrs Sex: Female : 2000 Arrival Date: 08/27/2025 Time: 00:15 Bed 20 Private MD: Diagnosis: Epigastric abdominal tenderness;Other cholelithiasis without obstruction;Hypokalemia Presentation: 08/27 00:54 Chief complaint: Patient states: abd cramping x1 hr, upper abd region, randomly started kb4 out of no where, no accompanying symptoms, "comes in waves". Coronavirus screen: At this time, the client does not indicate any symptoms associated with coronavirus-19. Ebola Screen: No symptoms or risks identified at this time. Initial Sepsis Screen: Does the patient meet any 2 criteria? No. Patient's initial sepsis screen is negative. Does the patient have a suspected source of infection? No. Patient's initial sepsis screen is negative. Risk Assessment: Do you want to hurt yourself or someone else? Patient reports no desire to harm self or others. Onset of symptoms was August 26, 2025 at 23:30. 00:54 Method Of Arrival: EMS: [facility] kb4 00:54 Acuity: RYANN 3 kb4 Triage Assessment: 00:57 General: Appears distressed, uncomfortable, Behavior is cooperative, restless. Pain: kb4 Complains of pain in epigastric area, right upper quadrant and left upper quadrant Pain currently is 10 out of 10 on a pain scale. GI: Abdomen is round. OVERCASTER: 00:57 unknown kb4 Historical: - PMHx: 00:57 Anxiety; kb4 - Immunization history:: Adult Immunizations up to date. - Infectious Disease History:: Denies. - Social history:: Smoking status: Reported history of juuling and/or vaping. Patient uses alcohol, occasionally. Screenin:58 [facility] ED Fall Risk Assessment (Adult) History of falling in the last 3 months, kb4 including since admission No falls in past 3 months (0 pts) Confusion or Disorientation No (0 pts) Intoxicated or Sedated No (0 pts) Impaired Gait No (0 pts) Mobility Assist Device Used No (0 pt) Altered Elimination No (0 pt) Score/Fall Risk Level 0 - 2 = Low Risk. Abuse screen: Denies threats or abuse. Denies injuries from another. Nutritional screening: No deficits noted. Tuberculosis screening: No symptoms or risk factors identified. Assessment: 01:00 General: Appears distressed. Cardiovascular: Patient's skin is warm and dry. kb4 Respiratory: Airway is patent Respiratory effort is even, unlabored, Respiratory pattern is regular, symmetrical. GI: Bowel sounds present X 4 quads. Abd is soft X 4 quads. : No signs and/or symptoms were reported regarding the genitourinary system. EENT: No signs and/or symptoms were reported regarding the EENT system. Derm: No signs and/or symptoms reported regarding the dermatologic system. Musculoskeletal: No signs and/or symptoms reported regarding the musculoskeletal system. 01:47 Reassessment: Patient appears in no apparent distress at this time. Patient and/or kb4 family updated on plan of care and expected duration. Pain level reassessed. Patient is alert, oriented x 3, equal unlabored respirations, skin warm/dry/pink. Patient states feeling better. Patient states symptoms have improved. 02:22 Reassessment: Patient and/or family updated on plan of care and expected duration. Pain kb4 level reassessed. Patient is alert, oriented x 3, equal unlabored respirations, skin warm/dry/pink. Patient states feeling better. Patient states symptoms have improved. 03:54 Reassessment: Patient and/or family updated on plan of care and expected duration. Pain kb4 level reassessed. Patient is alert, oriented x 3, equal unlabored respirations, skin warm/dry/pink. Patient denies pain at this time. Patient states feeling better. Patient states symptoms have improved. Vital Signs: 00:54 BP 104 / 67; Pulse 87; Resp 22; Temp 98.7; Pulse Ox 100% ; Weight 100.24 kg; Height 5 kb4 ft. 10 in. ; 01:45 BP 116 / 62; Pulse 61; Resp 16; Pulse Ox 100% on R/A; kb4 02:22 BP 110 / 71; Pulse 63; Resp 16; Pulse Ox 100% on R/A; kb4 03:53 BP 90 / 67; Pulse 64; Resp 18; Pulse Ox 100% ; kb4 00:54 Body Mass Index 31.71 (100.24 kg, 177.8 cm) kb4 ED Course: 00:19 Patient arrived in ED. kb4 00:20 [facility]-C [facility]. kb 00:20 Oscar Jimenez MD is Attending Physician. kb 00:23 Sydnee Abreu, AMA is Primary Nurse. kb4 00:57 Triage completed. kb4 00:57 Arm band placed on right wrist. kb4 00:58 Patient has correct armband on for positive identification. kb4 00:58 Inserted saline lock: 22 gauge in right antecubital area, using aseptic technique. kb4 ,using aseptic technique. by EMS IV discontinued, intact, bleeding controlled, No redness/swelling at site. Pressure dressing applied, 22 g IV d/c due to infiltration. 01:00 Initial lab(s) drawn, by me, sent to lab. EKG done, by ED staff. Inserted saline lock: kb4 20 gauge in left antecubital area, using aseptic technique. Blood collected. Flushed with 10 mL NS. 01:01 Chest Single View XRAY In Process Unspecified. EDMS 01:58 CT Abd/Pelvis - IV Contrast Only In Process Unspecified. EDMS 03:49 Donaldo Pa MD is Referral Physician. [facility] 04:11 Provided Education on: d/c instructions. kb4 04:11 No provider procedures requiring assistance completed. kb4 Administered Medications: 00:53 Drug: Famotidine IVP 20 mg IVP once; dilute with 10 mL 0.9% NaCl; give over 2 minutes kb4 Route: IVP; Site: right antecubital; 01:00 Follow up: Response: No adverse reaction kb4 00:53 Drug: Ondansetron IVP 4 mg IVP once; over 2 minutes Route: IVP; Site: right antecubital;kb4 01:00 Follow up: Response: No adverse reaction kb4 00:53 Drug: morphine IVP or IV 4 mg IVP once over 4 mins Route: IVP; Infused Over: 4 mins; kb4 Site: right antecubital; 01:00 Follow up: Response: No adverse reaction kb4 00:53 Drug: NS 0.9% IV 1000 ml IV at 1 bolus Per protocol; to be given as a bolus over 60 kb4 minutes Route: IV; Rate: 1 bolus; Site: right antecubital; 00:53 Follow up: Response: No adverse reaction kb4 01:00 Follow up: Response: No adverse reaction; IV Status: Completed infusion kb4 02:14 CANCELLED (Physician Discretion): potassium [id number] meq IV at per protocol once; kb4 administer over 1-2 hours 02:14 Drug: NS 0.9% with KCl IV 20 mEq/L 1000 ml IV at 500 ml/hr continuous Route: IV; Rate: kb4 500 ml/hr; Site: left antecubital; 04:00 Follow up: Response: No adverse reaction; IV Status: Completed infusion kb4 02:15 Drug: Potassium PO Effervescent Tablet 25 mEq PO once; dissolve in 4 ounces of water or kb4 juice Route: PO; 04:00 Follow up: Response: No adverse reaction kb4 Medication: 04:11 VIS not applicable for this client. kb4 Outcome: 03:49 Discharge ordered by . jose roberto 04:11 Discharged to home kb4 04:11 Condition: good 04:11 Discharge instructions given to patient, Instructed on discharge instructions, follow up and referral plans. medication usage, Demonstrated understanding of instructions, follow-up care, medications, Prescriptions given X 3, 04:11 Patient left the ED. kb4 Signatures: Dispatcher [employer] EDMS Laura Wheeler, INSURANCE OPERATIONS REP-C INSURANCE OPERATIONS REP-Ckb Oscar Jimenez MD MD cha Bowen, Kayla, RN RN kb4 Corrections: (The following items were deleted from the chart) 00:57 00:57 PMHx: Depression; kb4 kb4 00:57 00:57 PMHx: hypertension during ; kb4 kb4 04:10 04:10 Response: No adverse reaction kb4 kb4 04:10 04:10 Response: No adverse reaction; IV Status: Completed infusion kb4 kb4
--- NOTE | 2025-08-27 03:49 | EDPHYS ---
Physician Documentation [facility] Name: Gayathri Garcia Age: 24 yrs Sex: Female : 2000 Arrival Date: 08/27/2025 Time: 00:15 Bed 20 Private MD: ED Physician Oscar Jimenez HPI: 08/27 00:27 This 24 yrs old Female presents to ER via Unassigned with complaints of Abdominal Pain. 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 kb States she is having trouble breathing due to pain. Denies n/v/d, fever. BAKER HEAD: 00:57 unknown kb4 Historical: - PMHx: 00:57 Anxiety; kb4 - Immunization history:: Adult Immunizations up to date. - Infectious Disease History:: Denies. - Social history:: Smoking status: Reported history of juuling and/or vaping. Patient uses alcohol, occasionally. ROS: 00:26 Constitutional: As per HPI kb 02:40 Eyes: Negative for injury, pain, redness, and discharge, ENT: Negative for injury, jose roberto pain, and discharge, Neck: Negative for injury, pain, and swelling, Cardiovascular: Negative for chest pain, palpitations, and edema, Respiratory: Negative for shortness of breath, cough, wheezing, and pleuritic chest pain, Back: Negative for injury and pain, : Negative for injury, bleeding, discharge, and swelling, MS/Extremity: Negative for injury and deformity, Skin: Negative for injury, rash, and discoloration, Neuro: Negative for headache, weakness, numbness, tingling, and seizure, Psych: Negative for depression, anxiety, suicide ideation, homicidal ideation, and hallucinations, Allergy/Immunology: Negative for hives, rash, and allergies, Endocrine: Negative for neck swelling, polydipsia, polyuria, polyphagia, and marked weight changes, Hematologic/Lymphatic: Negative for swollen nodes, abnormal bleeding, and unusual bruising, 02:40 Abdomen/GI: Positive for abdominal pain, of the right upper quadrant, Exam: 00:26 Constitutional: This is a well developed, well nourished patient who is awake, alert, kb and in no acute distress. Head/Face: Normocephalic, atraumatic. ENT: Moist Mucous membranes Cardiovascular: Regular rate Respiratory: Respirations even and unlabored. No increased work of breathing. Talking in full sentences Skin: Warm, dry with normal turgor. Normal color. MS/ Extremity: Pulses equal, no cyanosis. Neurovascular intact. Full, normal range of motion. Neuro: Awake and alert, GCS 15, oriented to person, place, time, and situation. 00:26 Abdomen/GI: Inspection: abdomen appears normal, Bowel sounds: normal, Palpation: soft, in all quadrants, moderate abdominal tenderness, in the epigastric area and right upper quadrant, 00:42 ECG was reviewed by the Attending Physician. Vital Signs: 00:54 BP 104 / 67; Pulse 87; Resp 22; Temp 98.7; Pulse Ox 100% ; Weight 100.24 kg; Height 5 kb4 ft. 10 in. ; 01:45 BP 116 / 62; Pulse 61; Resp 16; Pulse Ox 100% on R/A; kb4 02:22 BP 110 / 71; Pulse 63; Resp 16; Pulse Ox 100% on R/A; kb4 03:53 BP 90 / 67; Pulse 64; Resp 18; Pulse Ox 100% ; kb4 00:54 Body Mass Index 31.71 (100.24 kg, 177.8 cm) kb4 MDM: 00:21 Medical Screening Exam initiated kb 00:26 Differential diagnosis: cholecystitis, Cholelithiasis, gastritis, non-specific abd kb pain, pancreatitis. Data reviewed: vital signs, nurses notes. Historians other than the Patient: EMS: [facility]. 01:58 Transition of care: After a detail discussion of the patient's case, care is kb transferred to Oscar Jimenez MD. 08/27 00:23 Order name: CBC with Diff; Complete Time: 01:42 kb 08/27 00:23 Order name: CMP; Complete Time: 01:48 kb 08/27 00:23 Order name: Lipase; Complete Time: 01:48 kb 08/27 01:19 Order name: Test Serum, [place]; Complete Time: 01:42 EDMS 08/27 00:23 Order name: CT Abd/Pelvis - IV Contrast Only kb 08/27 00:23 Order name: Chest Single View XRAY kb 08/27 00:23 Order name: IV Saline Lock; Complete Time: 00:53 kb 08/27 00:23 Order name: Labs collected and sent; Complete Time: 00:53 kb 08/27 00:23 Order name: EKG - Nurse/Tech; Complete Time: 00:41 kb EC:42 Rate is 72 beats/min. Rhythm is regular. QRS [place] is Normal. DC interval is normal at kb 198 msec. QRS interval is normal at 88 msec. QT interval is normal at 398 msec. Administered Medications: 00:53 Drug: Famotidine IVP 20 mg IVP once; dilute with 10 mL 0.9% NaCl; give over 2 minutes kb4 Route: IVP; Site: right antecubital; 01:00 Follow up: Response: No adverse reaction kb4 00:53 Drug: Ondansetron IVP 4 mg IVP once; over 2 minutes Route: IVP; Site: right antecubital;kb4 01:00 Follow up: Response: No adverse reaction kb4 00:53 Drug: morphine IVP or IV 4 mg IVP once over 4 mins Route: IVP; Infused Over: 4 mins; kb4 Site: right antecubital; 01:00 Follow up: Response: No adverse reaction kb4 00:53 Drug: NS 0.9% IV 1000 ml IV at 1 bolus Per protocol; to be given as a bolus over 60 kb4 minutes Route: IV; Rate: 1 bolus; Site: right antecubital; 00:53 Follow up: Response: No adverse reaction kb4 01:00 Follow up: Response: No adverse reaction; IV Status: Completed infusion kb4 02:14 CANCELLED (Physician Discretion): potassium [id number] meq IV at per protocol once; kb4 administer over 1-2 hours 02:14 Drug: NS 0.9% with KCl IV 20 mEq/L 1000 ml IV at 500 ml/hr continuous Route: IV; Rate: kb4 500 ml/hr; Site: left antecubital; 04:00 Follow up: Response: No adverse reaction; IV Status: Completed infusion kb4 02:15 Drug: Potassium PO Effervescent Tablet 25 mEq PO once; dissolve in 4 ounces of water or kb4 juice Route: PO; 04:00 Follow up: Response: No adverse reaction kb4 Disposition: 02:41 Co-signature as Attending Physician, Oscar Jimenez MD I agree with the assessment and jose roberto plan of care. Disposition Summary: 08/27/25 03:49 Discharge Ordered Notes: Location: Home jose roberto Problem: new jose roberto Symptoms: have improved jose roberto Condition: Stable jose roberto Diagnosis - Epigastric abdominal tenderness jose roberto - Other cholelithiasis without obstruction jose roberto - Hypokalemia jose roberto Followup: jose roberto - With: Private Physician - When: 2 - 3 days - Reason: Recheck today's complaints, Re-evaluation by your physician Followup: jose roberto - With: Donaldo Pa MD - When: 2 - 3 days - Reason: Recheck today's complaints, Re-evaluation by your physician Discharge Instructions: - Discharge Summary Sheet jose roberto - Abdominal Pain, Adult jose roberto - Potassium Content of Foods jose roberto - Cholelithiasis jose roberto - Cholelithiasis, [id number] jose roberto - Abdominal Pain, Adult, [id number] jose roberto - Hypokalemia jose roberto - Cholecystitis, [id number] jose roberto Forms: - Medication Reconciliation Form jose roberto - Antibiotic Education jose roberto - Prescription Opioid Use jose roberto - Patient Portal Instructions [facility] - Leadership Thank You Letter [facility] Prescriptions: - ondansetron 4 mg Oral Tablet,disintegrating - take 1 tablet ORAL route every 6 hours as needed for nausea and vomiting; 20 jose roberto tablet; Refills: 0, Product Selection Permitted - Pepcid 20 mg Oral Tablet - take 1 tablet ORAL route every 12 hours for 10 days; 20 tablet; Refills: 0, jose roberto Product Selection Permitted - dicyclomine 20 mg Oral tablet - take 1 tablet ORAL route 4 times per day; 28 tablet; Refills: 0, Product jose roberto Selection Permitted Signatures: Dispatcher [employer] EDDC Laura Wheeler FNP-C FNP-Oscar Salinas MD MD cha Bowen, Kayla, RN RN kb4 Corrections: (The following items were deleted from the chart) 00:23 00:23 Abdomen Pelvis W Con+CT.RAD.BRZ ordered. EDDC EDMS 00:23 00:23 Chest Single View+RAD.RAD.BRZ ordered. EDDC EDMS 00:57 00:57 PMHx: Depression; kb4 kb4 00:57 00:57 PMHx: hypertension during ; kb4 kb4 01:19 00:23 Test, Urine+UC.LAB.BRZ ordered. EDDC EDMS 02:14 01:50 Potassium Chloride IV 20 mEq IV at per protocol once; administer over 1-2 hours kb4 ordered. jose roberto
[2025-08-27 05:19] VITALS: O2SAT 100
[2025-08-27 05:20] VITALS: TEMP 98.7
[2025-08-27 05:24] VITALS: BP 90/67
--- NOTE | 2025-08-27 06:13 | RAD REPORT ---
TIME OF STUDY: 08/27/2025 12:23 AM CDT REASON FOR EXAM: CHEST PAIN COMPARISON: None. FINDINGS: AP view of the chest was obtained, chest 1 view. Lungs: Normal lung volume. No mass, or consolidation. Normal pulmonary vascularity.. Bilateral nipp le piercings are noted. Pleura: No pneumothorax. There is no pleural effusion. Heart and Mediastinum: Normal cardiomediastinal silhouette and great vessels.. Bones: No acute bony abnormality.. IMPRESSION: 1. No acute cardiopulmonary process. Electronically signed by: Louis Ward MD 08/27/2025 01:48 AM CDT RP Due to temporary technical issues with the PACS/[employer] reporting system, reports are being marisol d by the in-house radiologist without review as a courtesy to ensure prompt reporting the interpreting radiologist is fully responsible for the content of the report. Transcribed Date/Time: 08/27/2025 6:13 AM
== END 2025-08-27 04:11 | disposition home or self-care (01) ==
LOC: ER 00:15
DX: K80.80 Other cholelithiasis without obstruction (principal); R10.816 Epigastric abdominal tenderness; E87.6 Hypokalemia; F17.210 Nicotine dependence, cigarettes, uncomplicated
CPT/HCPCS: 96361; 93005; 85025; 36415; 84703; 83690; 80053; 74177; 71045; 96375; 96374; 99285; Q9967; J2405; J7030; J3480